=== PATIENT | female | born 1975 | race Caucasian/White ===

== ENCOUNTER 2016-11-29 14:52 | Emergency (ER) | payer MEDICAID ==
[~2016-11-29] VITALS: Ht 167.6 cm; Wt 81.9 kg
[2016-11-29 14:55] VITALS: Ht 167.6 cm; Wt 81.9 kg
--- OUTSIDE RECORDS SUMMARY | 2016-11-29 14:56 | XMS REPORT | Summary of Care ---
Author Author Bijan Yee D.O. Organization Unknown Address [address], [place] [id number] Phone Unavailable Care Team Providers Care Remote Broadcast Technician Name Role Phone Bijan Yee D.O. Unavailable Unavailable Halina Monterroso Unavailable Unavailable Unavailable Unavailable Functional Status Name Dates Details Functional status health issues are not documented Status: Name Dates Details Cognitive status health issues are not documented Status: Problems Name Dates Details Acute maxillary sinusitis, recurrence not specified (461.0, J01.00) Status: Active Essential hypertension (401.9, I10) Status: Active Medications Name Dates Details Amoxicillin-Pot Clavulanate 875-125 MG Oral Tablet TAKE 1 TABLET TWICE DAILY AFTER MEALS UNTIL FINISHED x 7 days. Quantity: 14 Joselito Pike.Luis.Bijan * Start 24-Oct-2016 Active PredniSONE 10 MG Oral Tablet TAKE 6 TABLETS TODAY, THEN DECREASE BY 1 TABLET EACH DAY UNTIL GONE. * Quantity: 21 Refills: 0 Bijan Yee D.O. * Start 24-Oct-2016 Active Lisinopril-Hydrochlorothiazide 20-12.5 MG Oral Tablet TAKE 2 TABLET Daily * Quantity: 60 Refills: 0 Bijan Yee D.O. * Start 24-Oct-2016 Active Allergies and Adverse Reactions Name Dates Details Allergy history not documented Status: Procedures Procedure Dates Details Procedures not documented Immunization Name Dates Details Immunizations not documented Social History Name Dates Details Unknown if ever smoked Vital Signs Date Test Result Details No Known Vitals to report Results Date Description Value Details Results not documented Plan of Care Name Dates Details Planned Observations Planned Goals not documented Interventions Provided Medication Changes* Amoxicillin-Pot Clavulanate 875-125 MG Oral Tablet - Start * Lisinopril-Hydrochlorothiazide 20-12.5 MG Oral Tablet - Start * PredniSONE 10 MG Oral Tablet - Start Instructions Name Dates Details Instructions not documented Encounters Appointment; Bijan Yee D.O. Encounter Diagnosis: Problem not documented On 24-Oct-2016 19:35
--- OUTSIDE RECORDS SUMMARY | 2016-11-29 14:56 | XMS REPORT | Referral Summary ---
Author Organization Unknown Address Unknown Phone Unavailable Care Team Providers Care Transplanter Name Role Phone Glendy Monterroso Primary Care Physician [phone] Encounter VC Date(s): 09/15/14 - 09/15/14 [facility], [facility], Family Medicine [address] [id number] Discharge Diagnosis: Edema Discharge Diagnosis: Obesity Discharge Diagnosis: Depression Discharge Diagnosis: Fibromyalgia Discharge Diagnosis: Hypopotassemia Discharge Diagnosis: Acute sinusitis Discharge Diagnosis: Anxiety Discharge Disposition: Home or Self Care Attending Physician: Bar Perez Admitting Physician: Bar Perez Vital Signs Most recent to 1 oldest [Reference Range]: Peripheral Pulse 95 bpm Rate [60-100 bpm] (09/15/14 9:59 AM) Blood Pressure 140/92 mmHg [90-140/60-90 mmHg] (09/15/14 9:59 AM) Most recent to 1 oldest [Reference Range]: SpO2 98 % (09/15/14 9:59 AM) Problem List Condition Effective Dates Status Health Status Informant Acute Active sinusitis(Confirmed) Allergies(Confirmed) Active Anemia(Confirmed) Active Anxiety(Confirmed) Active Depression(Confirmed Active ) Edema(Confirmed) Active Fibromyalgia(Confirm Active ed) Hypertension(Confirm Active ed) Obesity(Confirmed) Active patient Peptic ulcer Active disease(Confirmed) Allergies, Adverse Reactions, Alerts Substance Reaction Severity Status droperidol Active sulfamethoxazole Adverse Reaction Active sick sulfonamides sick Active Medications Augmentin 875 mg-125 mg oral tablet 1 tabs, Oral, q12hr, X 10 days, # 20 tabs, 0 Refill(s), Pharmacy: [facility] Start Date: 09/15/14 Stop Date: 09/25/14 Status: Ordered Maxzide 75 mg-50 mg oral tablet 1 tabs, Oral, Daily, # 90 tabs, 3 Refill(s), Pharmacy: [facility] Start Date: 09/15/14 Stop Date: 09/10/15 Status: Ordered [place] 7.5 mg-325 mg oral tablet 1 tabs, Oral, QID, X 30 days, # 120 tabs, 0 Refill(s) Start Date: 09/15/14 Stop Date: 10/15/14 Status: Ordered omeprazole 20 mg oral delayed release tablet See Instructions, take 1 Tablet by Oral route 2 times every day, 0 Refill(s) Special Instructions: take 1 Tablet by Oral route 2 times every day Start Date: 05/05/14 Status: Ordered phentermine 37.5 mg oral tablet 1 tabs, Oral, Daily, X 30 days, # 30 tabs, 0 Refill(s) Start Date: 09/15/14 Stop Date: 10/15/14 Status: Ordered potassium chloride 20 mEq oral tablet, extended release 1 tabs, Oral, BID, START, # 180 tabs, 0 Refill(s), Pharmacy: [facility] [address] [id number], 1 tabs Oral BID,Instr:START Special Instructions: START Start Date: 06/19/14 Status: Ordered Xanax 0.25 mg oral tablet 1 tabs, Oral, BID, X 30 days, # 60 tabs, 2 Refill(s) Start Date: 09/15/14 Stop Date: 12/14/14 Status: Ordered Results Chemistry Most recent to 1 oldest [Reference Range]: Sodium Lvl [135-144 139 mEq/L mEq/L] (09/15/14 10:50 AM) Potassium Lvl 4.2 mEq/L [3.5-5.2 mEq/L] (09/15/14 10:50 AM) Chloride [99-111 102 mEq/L mEq/L] (09/15/14 10:50 AM) CO2 [22-31 mEq/L] 27 mEq/L (09/15/14 10:50 AM) AGAP [3-20] 10 (09/15/14 10:50 AM) BUN [7-19 mg/dL] 9 mg/dL (09/15/14 10:50 AM) Glucose Lvl [70-99 95 mg/dL mg/dL] (09/15/14 10:50 AM) Creatinine Lvl 0.82 mg/dL [0.57-1.11 mg/dL] (09/15/14 10:50 AM) eGFR [>60 mL/min] >60 mL/min 1 (09/15/14 10:50 AM) Calcium Lvl 10.1 mg/dL [8.9-10.5 mg/dL] (09/15/14 10:50 AM) Albumin Lvl [3.5-5.0 4.1 gm/dL gm/dL] (09/15/14 10:50 AM) Total Protein 6.8 gm/dL [6.4-8.3 gm/dL] (09/15/14 10:50 AM) Globulin [1.8-4.0 2.7 gm/dL gm/dL] (09/15/14 10:50 AM) ALT [0-55 unit/L] 18 unit/L (09/15/14 10:50 AM) AST [5-34 unit/L] 16 unit/L (09/15/14 10:50 AM) Alk Phos [40-150 60 unit/L unit/L] (09/15/14 10:50 AM) Bili Total [0.2-1.2 0.2 mg/dL mg/dL] (09/15/14 10:50 AM) 1Result Comment: Multiply eGFR results by 1.21 for race. Immunizations Vaccine Date Refusal Reason tetanus/diphth/pertuss (Tdap) adult/adol 04/26/09 Procedures Procedure Date Related Diagnosis Body Site Collection of venous blood by venipuncture 09/15/1426-Aug-2014 00:38:50<$> Hysterectomy 2013 Social History Social History Type Response Smoking Status Former smoker; Type: Cigarettes Assessment and Plan Extracted from: Title: Office Visit Note Author: Bar Perez Date: 09/15/14 Assessment/Plan Acute sinusitis May continue symptomatic treatment. Start Augmentin 875/125 mg take one twice a day for 10 days. She has had this antibiotic in the past and it seems to work well. Anxiety Continue on xanax as needed. Edema Increase Maxzide to 75/50 mg, take 1 daily.New Prescription sent. Fibromyalgia [place] 7.5/325, take up to 4 times a day as needed for severe pain. Prescription handed to patient. Hypopotassemia Chemistry panel is pending. We will notify her with those results and let her know if she needs to continue on the potassium or not. Ordered: Comprehensive Metabolic Panel Obesity Discussed appetite suppressants and use. Advised to call if palpitations, chest pain, shortness of breath, chest pressure or elevated BP occur. Reviewed importance of daily exercise, good food choices, portion control andno snacking between meals. Refill given on 37.5mg daily. Patient will follow up in 1 month for weight and blood pressure check. Dictation was performed with voice recognition software, proofreading was not performed. Voice recognition errors possible. Orders: ALPRAZolam, 1 tabs, Oral, BID, X 30 days, # 60 tabs, 2 Refill(s) amoxicillin-clavulanate, 1 tabs, Oral, q12hr, X 10 days, # 20 tabs, 0 Refill(s ), Pharmacy: [facility] HYDROcodone-acetaminophen, 1 tabs, Oral, QID, X 30 days, # 120 tabs, 0 Refill( s) phentermine, 1 tabs, Oral, Daily, X 30 days, # 30 tabs, 0 Refill(s) triamterene-hydrochlorothiazide, 1 tabs, Oral, Daily, # 90 tabs, 3 Refill(s), Pharmacy: [facility]
--- OUTSIDE RECORDS SUMMARY | 2016-11-29 14:56 | XMS REPORT ---
Author Author Orestes Calero Organization [employer] Address Unknown Phone Unavailable Care Team Providers Care Motor Winder Name Role Phone Orestes Calero CP Unavailable Allergies No Known Allergies Problems No Known Problems Medications No Known Medications Results No Known Results Summary Purpose e[employer] Submission
--- OUTSIDE RECORDS SUMMARY | 2016-11-29 14:56 | XMS REPORT | Continuity of Care Document ---
Author Author Jens Monterroso MD [facility] Address [address] [place] [address] Phone Care Team Providers Care Disc Pad Plate Filler Name Role Phone Jens Monterroso PP Unavailable Payers Payer name Insurance type Covered green party ID Authorization(s) Unknown Problems Condition Effective Dates (start - stop) Clinical Status Anxiety - *Chronic Myalgia and myositis, unspecified - *Chronic Obesity - *Chronic Elevated blood pressure reading without diagnosis of hypertension - *Acute Acute maxillary sinusitis - *Acute Benign essential hypertension - *Chronic Depressive disorder, not elsewhere classified - *Chronic Esophageal reflux - *Chronic Abnormal weight gain - *Chronic Myalgia and myositis, unspecified - *Chronic Obesity - *Chronic Acne - *Symptomatic Anxiety - *Symptomatic Depression - *Symptomatic Fibromyalgia - *Chronic Elevated blood pressure reading without diagnosis of hypertension - *Acute Depression - *Worse Abnormal weight gain - Recurrent Sinusitis, Acute - *Acute Obesity - *Chronic Benign essential hypertension - *Chronic Depressive disorder, not elsewhere classified - *Chronic Benign essential hypertension - *Chronic Obesity (BMI 30-39.9) - *Acute Obesity - *Chronic Nasal congestion - *Chronic Myalgia and myositis, unspecified - *Chronic Allergic rhinitis, cause unspecified - *Chronic Abnormal weight gain - *Chronic Acute maxillary sinusitis - *Acute Myalgia and myositis, unspecified - *Chronic Diarrhea - *Acute Metrorrhagia - *Chronic Benign essential hypertension - *Chronic Myalgia and myositis, unspecified - *Chronic Other malaise and fatigue - *Chronic Myalgia and myositis, unspecified - *Chronic Myalgia and myositis, unspecified - *Chronic Abnormal weight gain - *Chronic Myalgia and myositis, unspecified - *Chronic Depressive disorder, not elsewhere classified - *Chronic Sinusitis, Acute - Recurrent Abnormal weight gain - *Symptomatic Myalgia and myositis, unspecified - *Chronic Obesity - *Chronic Abnormal weight gain - *Acute Dehydration - *Acute Nausea with vomiting - *Acute Abdominal pain, epigastric - *Acute Obesity - *Chronic Obesity - *Chronic Anxiety - *Chronic Depression - *Chronic Myalgia and myositis, unspecified - *Chronic Myalgia and myositis, unspecified - *Chronic Headache - *Acute Headache - *Acute Myalgia and myositis, unspecified - *Chronic Depressive disorder, not elsewhere classified - *Chronic Abdominal pain, epigastric - *Acute Depressive disorder, not elsewhere classified - *Chronic Benign essential hypertension - *Chronic Urinary tract infection, site not specified - Recurrent Screening for diabetes mellitus - *Chronic Benign essential hypertension - *Chronic Myalgia and myositis, unspecified - *Chronic Benign essential hypertension - *Chronic Myalgia and myositis, unspecified - *Chronic Esophageal reflux - *Chronic Depressive disorder, not elsewhere classified - *Chronic Abnormal weight gain - *Chronic Benign essential hypertension - *Chronic Myalgia and myositis, unspecified - *Chronic Benign essential hypertension - *Chronic Depressive disorder, not elsewhere classified - *Chronic Stress incontinence, female - *Chronic Ganglion of tendon sheath - *Chronic Headache - *Acute Elevated blood pressure (not hypertension) - Episodic Acute sinusitis - *Acute Obesity - *Chronic Depression - *Poor control Obesity - *Chronic Obesity - *Poor control Fibromyalgia - *Chronic GERD - *Chronic Hypertension, Benign - *Chronic Obesity - *Chronic Abnormal weight gain - *Chronic Allergic rhinitis, cause unspecified - *Symptomatic Benign essential hypertension - *Chronic Myalgia and myositis, unspecified - *Chronic Acute maxillary sinusitis - *Acute Upper Respiratory Infection, Acute - *Acute Obesity - *Chronic Family History Family Member Diagnosis Age At Onset Status Maternal grandfather (Alive) CAD Yes Maternal grandmother (Unknown) Hypothyroidism Yes Mother (Unknown) Cancer -cervical Yes Maternal grandmother (Unknown) Hypertension Yes Mother (Unknown) Hypertension Yes Social History Social History Element Description Quantity Unknown Allergies, Adverse Reactions, Alerts Substance Reaction Severity Status SULFA (SULFONAMIDE ANTIBIOTICS) sick Unknown SULFABENZAMIDE sick Unknown DROPERIDOL Unknown Medications Medication Instructions Dosage Effective Dates (start - stop) Status Xanax 0.25 mg tablet take 1 tablet (0.25MG) by oral route 2 times every day (MUST LAST 30 DAYS) - Active clindamycin 1 % topical solution apply by topical route 2 times every day a thin layer to the affected area(s) 0 - Active [place] 7.5 mg-325 mg tablet take 1 tablet by mouth 4 times a day as needed - Active Xanax 0.25 mg tablet take 1 tablet (0.25MG) by oral route 2 times every day (MUST LAST 30 DAYS) - No Longer Active omeprazole 20 mg tablet,delayed release take 1 Tablet by Oral route 2 times every day 0 - Active take 1 tablet by oral route 2 times every day 0 - Active Effexor XR 75 mg capsule,extended release take 1 capsule (75MG) by oral route every day with food along with 150mg capsule - Active Effexor XR 150 mg capsule,extended release take 1 capsule (150MG) by oral route every day along with 75mg capsule - Active minocycline 50 mg tablet Take 1 tablet by mouth twice daily. - Active hydrochlorothiazide 25 mg tablet take 2 Tablet (50MG) by oral route every day 50 MG - Active Lexapro 10 mg tablet take 1 Tablet (10MG) by oral route every day 10 MG - Active Immunizations Vaccine Date Status Comments Tdap completed Results Test Name Date and Time Measure Units Reference Range Abnormal Flag Comments Unknown Vital Signs Date / Time: Height Weight Pulse Rate Blood Pressure Temperature /09:34:00 65.50 in 198.00 lbs 94 /min 150/100 mm[Hg] 97.5 F Procedures Procedure Date Unknown Encounters Encounter Location Date Patient Visit [address] Patient Visit [facility] Patient Visit [address] Patient Visit [address] Patient [address] Patient Visit [address] Patient Visit [address] Patient Visit [facility] Patient Visit [address] Patient [address] Patient [facility] Patient [facility] Patient [facility] Patient [facility] Patient [facility] Patient [facility] Patient [facility] Patient [facility] Patient Visit [facility] Patient [facility] Patient [facility] Patient Visit [facility] Patient Visit [facility] Patient Visit [facility] Patient Visit [facility] Patient Visit [facility] Patient Visit [facility] Patient Visit [facility] Patient Visit [facility] Advance Directives Directive Effective Date Unknown
--- OUTSIDE RECORDS SUMMARY | 2016-11-29 14:56 | XMS REPORT | Summary of Care ---
Author Author Bijan Yee D.O. Organization Unknown Address [address] [place], [place] [address] Phone Unavailable Care Team Providers Care Management Coordinator Name Role Phone Bijan Yee D.O. Unavailable Unavailable Halina Monterroso Unavailable Unavailable Unavailable Unavailable Functional Status Name Dates Details Functional status health issues are not documented Status: Name Dates Details Cognitive status health issues are not documented Status: Problems Name Dates Details Acute maxillary sinusitis, recurrence not specified (461.0, J01.00) Status: Active Medications Name Dates Details Amoxicillin-Pot Clavulanate 875-125 MG Oral Tablet TAKE 1 TABLET TWICE DAILY AFTER MEALS UNTIL FINISHED x 7 days. Quantity: 14 Bijan Yee D.O. * Start 24-Oct-2016 Active PredniSONE 10 MG [...]
--- OUTSIDE RECORDS SUMMARY | 2016-11-29 14:56 | XMS REPORT ---
Author Orestes Auguste [facility] [employer] Address Unknown Phone Unavailable Care Team Providers Care Scrap Iron Loader Name Role Phone Orestes Calero CP Unavailable Allergies No Known Allergies Problems No Known Problems Medications No Known Medications Results No Known Results Summary Purpose eClinicalWorks Submission
--- OUTSIDE RECORDS SUMMARY | 2016-11-29 14:57 | XMS REPORT ---
Author Author Orestes Calero Organization [employer] Address Unknown Phone Unavailable Care Team Providers Care Tissue Inserter Name Role Phone Orestes Calero CP Unavailable Allergies No Known Allergies Problems No Known Problems Medications No Known Medications Results No Known Results Summary Purpose eClinicalWorks Submission
--- OUTSIDE RECORDS SUMMARY | 2016-11-29 14:57 | XMS REPORT | Referral Summary ---
Author Organization Unknown Address Unknown Phone Unavailable Care Team Providers Care Digital Media Producer Name Role Phone Glendy Monterroso Primary Care Physician [phone] Encounter VC Date(s): 10/27/14 - 10/27/14 [facility], [facility], Family Medicine [address] [address] Discharge Diagnosis: Vaginal dryness Discharge Diagnosis: Obesity Discharge Diagnosis: Chronic sinusitis Discharge Diagnosis: Anxiety Discharge Diagnosis: Depression Discharge Diagnosis: Hypokalemia Discharge Disposition: Home or Self Care Attending Physician: Bar Perez Admitting Physician: Bar Perez Vital Signs Most recent to 1 oldest [Reference Range]: Peripheral Pulse 104 bpm Rate [60-100 bpm] *HI* (10/27/14 10:24 AM) Blood Pressure 160/100 mmHg [90-140/60-90 mmHg] *HI* (10/27/14 10:24 AM) Most recent to 1 oldest [Reference Range]: SpO2 97 % (10/27/14 10:24 AM) Problem List Condition Effective Dates Status Health Status Informant Acute Active sinusitis(Confirmed) Allergies(Confirmed) Active Anemia(Confirmed) Active Anxiety(Confirmed) Active Depression(Confirmed Active ) Edema(Confirmed) Active Fibromyalgia(Confirm Active ed) Hypertension(Confirm Active ed) Obesity(Confirmed) Active patient Peptic ulcer Active disease(Confirmed) Allergies, Adverse Reactions, Alerts Substance Reaction Severity Status droperidol Active sulfamethoxazole Adverse Reaction Active sick sulfonamides sick Active Medications Maxzide 75 mg-50 mg oral tablet 1 tabs, Oral, Daily, # 90 tabs, 3 Refill(s), Pharmacy: [facility] Start Date: 09/15/14 Stop Date: 09/10/15 Status: Ordered [place] 7.5 mg-325 mg oral tablet 1 tabs, Oral, QID, X 30 days, # 120 tabs, 0 Refill(s) Start Date: 10/27/14 Stop Date: 11/26/14 Status: Ordered omeprazole 20 mg oral delayed release tablet See Instructions, take 1 Tablet by Oral route 2 times every day, 0 Refill(s) Special Instructions: take 1 Tablet by Oral route 2 times every day Start Date: 05/05/14 Status: Ordered phentermine 37.5 mg oral capsule 1 caps, Oral, Daily, # 30 caps, 0 Refill(s) Start Date: 10/27/14 Stop Date: 11/27/14 Status: Ordered potassium chloride 20 mEq oral tablet, extended release 1 tabs, Oral, BID, START, # 180 tabs, 4 Refill(s), Pharmacy: [facility] [id number], 1 tabs Oral BID,Instr:START Special Instructions: START Start Date: 10/27/14 Status: Ordered Xanax 0.25 mg oral tablet 1 tabs, Oral, BID, X 30 days, # 60 tabs, 2 Refill(s) Start Date: 09/15/14 Stop Date: 12/14/14 Status: Ordered Results Chemistry Most recent to 1 oldest [Reference Range]: Sodium Venous 138 mEq/L [136-145 mEq/L] (10/27/14 11:35 AM) Potassium Venous 3.1 mEq/L 1 [3.5-5.1 mEq/L] *LOW* (10/27/14 11:35 AM) Calcium Ionized 1.1 mmol/L Venous [1.1-1.3 (10/27/14 11:35 AM) mmol/L] Total CO2 Venous 27 mEq/L [24-29 mEq/L] (10/27/14 11:35 AM) Glucose Venous 111 mg/dL [70-100 mg/dL] *HI* (10/27/14 11:35 AM) BUN Venous [8-26] 10 (10/27/14 11:35 AM) Creatinine Venous 1.1 mg/dL [0.6-1.2 mg/dL] (10/27/14 11:35 AM) GFR [>60] 55 (10/27/14 11:35 AM) Venous CL [98-109 98 mEq/L mEq/L] (10/27/14 11:35 AM) 1Result Comment: This test was performed on a whole blood specimen. The presence or absence of hemolysis cannot be assessed. Hemolysis can falsely elevate potassium levels. Normals are for venous specimens only. Immunizations Vaccine Date Refusal Reason tetanus/diphth/pertuss (Tdap) adult/adol 04/26/09 Procedures Procedure Date Related Diagnosis Body Site Collection of venous blood by venipuncture 10/27/14 Hysterectomy 2012 Social History Social History Type Response Smoking Status Former smoker; Type: Cigarettes Assessment and Plan Extracted from: Title: Office Visit Note Author: Bar Perez Date: 10/27/14 Assessment/Plan 1.Anxiety I am not going to increase her Xanax dose. I explained to her that she is likely becoming more and anxious because she stopped all of her depression medication and due to the phentermine. She will remain on 0.25 mg up to twice a day as needed. Patient still has one refill at the pharmacy. 2.Depression She does not want to take antidepressants at this time and feels like this is controlled. 3.Hypokalemia Metabolic profile is pending. Currently she is not taking her potassium supplement but she may need to restart this since she's been having the muscle aches. 4.Obesity Discussed appetite suppressants and use. Advised to [...] not performed. Voice recognition errors possible. Orders: HYDROcodone-acetaminophen, 1 tabs, Oral, QID, X 30 days, # 120 tabs, 0 Refill(s) phentermine, 1 caps, Oral, Daily, # 30 caps, 0 Refill(s) Addendum Assessment and plan cont. by 5. Vaginal dryness; pt is post hysterectomy and having problems with vaginal dryness and Chris, irritation. No h/o of cervical or uterine cancer according to pathology reports from [facility] hysterectomy. Still has one ovary. Given sample of premarin to try 3 times a week for 1 on , then 1-2 times weekly after that.New medication started today; discussed proper October 2014 dosing and possible side effects. If patient experiences any problems with the new 13:02:06 medication, they are advised to let us know. 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 Chronic sinus problems: encouraged to take coricidin HBP and try Dysmista, given a sample.
--- OUTSIDE RECORDS SUMMARY | 2016-11-29 14:57 | XMS REPORT | Continuity of Care Document ---
Author Author Lauren Hernandez MA, [facility] Ambulatory Address [address] [place] [address] Phone Unavailable Care Team Providers Care Parakeet Raiser Name Role Phone Jens Monterroso PP Unavailable Payers Payer name Insurance type Covered green party ID Authorization(s) Unknown Problems Condition Effective Dates (start - stop) Clinical Status Obesity - *Chronic Acne - *Symptomatic Anxiety - *Symptomatic Depression - *Symptomatic Fibromyalgia - *Chronic Acute maxillary sinusitis - *Acute Benign essential hypertension - *Chronic Depressive disorder, not elsewhere classified - *Chronic Esophageal reflux - *Chronic Abnormal weight gain - *Chronic Myalgia and myositis, unspecified - *Chronic Anxiety - *Chronic Myalgia and myositis, unspecified - *Chronic Obesity - *Chronic Elevated blood pressure reading without diagnosis of hypertension - *Acute Obesity - *Chronic Benign essential [...] Dosage Effective Dates (start - stop) Status Effexor XR 75 mg capsule,extended release take 1 capsule (75MG) by oral route every day with food along with 150mg capsule - Active Effexor XR 150 mg capsule,extended release take 1 capsule (150MG) by oral route every day along with 75mg capsule - Active phentermine 30 mg capsule take 1 capsule (30MG) by oral route every day before breakfast 30 MG - Active minocycline 50 mg tablet Take 1 tablet by mouth twice daily. - Active clindamycin 1 % topical solution apply by topical route 2 times every day a thin layer to the affected area(s) 0 - No Longer Active Ezel 7.5 mg-325 mg tablet take 1 tablet by mouth 4 times a day as needed - No Longer Active omeprazole 20 mg tablet,delayed release take 1 Tablet by Oral route 2 times every day 0 - Active take 1 tablet by oral route 2 times every day 0 - Active hydrochlorothiazide 25 mg tablet take 2 Tablet (50MG) by oral route every day 50 MG - Active clindamycin 1 % topical solution apply by topical route 2 times every day a thin layer to the affected area(s) 0 - Active Ezel 7.5 mg-325 mg tablet take 1 tablet by mouth 4 times a day as needed - Active Xanax 0.25 mg tablet take 1 tablet (0.25MG) by oral route 2 times every day (MUST LAST 30 DAYS) - Active Immunizations Vaccine Date Status Comments Tdap completed Results Test Name Date and Time Measure Units Reference Range Abnormal Flag Comments Unknown Vital Signs Date / Time: Height Weight Pulse Rate Blood Pressure Temperature / 130/88 mm[Hg] /14:59:00 65.50 in 198.00 lbs 79 /min 130/100 mm[Hg] 98.5 F Procedures Procedure Date Unknown Encounters Encounter Location Date Patient Visit [address] Patient Visit [facility] Patient Visit [address] Patient Visit [address] Patient Visit [address] Patient Visit [address] Patient Visit [facility] Patient Visit [address] Patient [address] Patient [facility] Patient [facility] Patient Visit [facility] Patient Visit [facility] Patient Visit [facility] Patient [facility] Advance Directives Directive Effective Date Unknown
--- OUTSIDE RECORDS SUMMARY | 2016-11-29 14:57 | XMS REPORT | Continuity of Care Document ---
Author Author [facility] Organization [facility] Address Unknown Phone Unavailable Allergies Medications Problems Date Dx Coded Attending Type Code Diagnosis Diagnosed By 05/21/2013 Mariann MENDIOLA, Paulino Zaldivar F 278.02 OVERWEIGHT 05/21/2013 Mariann MENDIOLA, Paulino W F 401.9 HYPERTENSION NOS 05/21/2013 Mariann MENDIOLA, Paulino W F 533.90 PEPTIC ULCER NOS 05/21/2013 Mariann MENDIOLA, Paulino W F 618.6 VAGINAL ENTEROCELE 05/21/2013 Mariann MENDIOLA, Paulino W F 626.8 MENSTRUAL DISORDER NEC 05/21/2013 Mariann MENDIOLA, Paulino W F 729.1 MYALGIA AND MYOSITIS NOS 05/21/2013 Mariann MENDIOLA, Paulino W F V06.6 PROPHYLACTIC VACC AGNST STREPTOCOCCUS PNEUM INFL 11/24/2016 LEENA HUFF [id number] Nicotine dependence, cigarettes, uncomplicated 11/24/2016 LEENA HUFF I10 Essential (primary) hypertension 11/24/2016 LEENA HUFF R072 Precordial pain 11/24/2016 LEENA HUFF R0789 Other chest pain 11/24/2016 LEENA HUFF [id number] Other intermodal customer service (current) drug therapy Procedures Code Description Performed By Performed On 65.39 OT UNILAT OOPHORECTOMY Paulino Waite MD W 05/21/2013 66.51 REMOVE BOTH FALLOP TUBES Paulino Waite MD W 05/21/2013 68.49 OTHER AND UNSPECIFIED TOTAL ABDOMINAL HYSTERECTOMY Mariann MENDIOLA, Paulino W 05/21/2013 70.52 RECTOCELE REPAIR Mariann MENDIOLA, Paulino W 05/21/2013 Results Test Result Range TROPONIN I - 11/11/12 22:40 TROPONIN I < 0.04 ng/mL < 0.15 POTASSIUM - 05/21/13 09:15 POTASSIUM 3.4 mmol/L 3.5-5.3 TEST, SERUM - 05/21/13 09:15 TEST, SERUM NEGATIVE NEGATIVE URINE CULTURE - 05/21/13 11:12 Uncategorized HGB HCT - 05/21/13 17:58 MEAN CELL VOLUME 84.4 fl 80.0-100.0 HEMOGLOBIN 13.3 gm/dL 12.0-16.0 HEMATOCRIT 39.5 % 37.0-47.0 HGB HCT - 05/22/13 06:11 MEAN CELL VOLUME 86.1 fl 80.0-100.0 HEMOGLOBIN 12.3 gm/dL 12.0-16.0 HEMATOCRIT 37.3 % 37.0-47.0 CBC WITH PLATELET AND DIFFERENTIAL - 07/19/16 21:25 SEGS 72.1 % NRG *BASOPHILS 0.6 % NRG *EOSINOPHILS 3.5 % NRG AUTOMATED DIFF PERFORMED NRG *LYMPHOCYTES 19.1 % NRG *MONOCYTES 4.7 % NRG *ABSOLUTE BASOPHILS 0.10 10*3/uL 0.00- 0.20 *ABSOLUTE EOSINOPHILS 0.30 10*3/uL 0.00- 0.50 *ABSOLUTE LYMPHOCYTES 1.80 10*3/uL 1.00- 3.00 *ABSOLUTE MONOCYTES 0.40 10*3/uL 0.30- 1.00 *ABSOLUTE NEUTROPHILS 6.90 10*3/uL 1.80- 7.80 MPV 7.2 fL 7.4-10.4 PLATELETS 330 10*3/uL 159-386 WBC 9.6 10*3/uL 3.6-11.2 RBC 4.76 3.63-4.92 HEMOGLOBIN 13.4 11.0-14.3 HEMATOCRIT 40.3 % 31.2-41.9 MCV 84.6 fL 79.0-98.0 MCH 28.2 pg 27.0-33.0 MCHC 33.3 32.0-36.0 RDW 13.4 % 12.3-17.0 RDWSD 40.3 37.1-47.8 COMPREHENSIVE METABOLIC PANEL - 07/19/16 21:25 BILIFUBIN TOTAL 0.20 0.20-1.00 TOTAL PROTEIN 6.6 6.4-8.2 ALBUMIN 3.4 3.4-5.0 *GLOBULIN 3.2 2.3-3.5 *A/G RATIO 1.1 1.5-2.2 ALK PHOS 62 U/L 46-116 ALT (SGPT) 21 U/L 16-63 AST (SGOT) 10 U/L 15-37 GFR ESTIMATION - 07/19/16 21:25 *GFR EST NON AFR SALVADOREAN 75 mL/min NRG *GRFA EST AFR AMER 87 mL/min NRG PROTHROMBIN TIME - 07/19/16 21:25 *INR 1.0 0.9-1.1 *PROTHROMBIN TIME 10.0 s 9.4-11.5 LIPASE - 07/19/16 21:25 LIPASE 101 U/L 73-393 TROPONIN-I - 07/19/16 21:25 TROPONIN-I <0.017 ng/mL 0.000-0.056 BNP - 07/19/16 21:25 B-TYPE NATRIURETIC PROTEIN 116 pg/mL 1- 100 URINALYSIS (CULTURE PRN) - 07/19/16 23:10 *URINE APPEARANCE CLEAR CLEAR *URINE BILIRUBIN NEGATIVE NEGATIVE *URINE BLOOD NEGATIVE NEGATIVE *URINE GLUCOSE NEGATIVE NEGATIVE *URINE KETONES NEGATIVE NEGATIVE *URINE LEUKOCYTES NEGATIVE NEGATIVE *URINE NITRITES NEGATIVE NEGATIVE URINE PH 7.0 5.0-8.0 *URINE PROTEIN NEGATIVE NEGATIVE URINE SPECIFIC GRAVITY 1.015 <=1.005->= 1.030 *URINE UROBILINOGEN 0.2 0.2-1.0 *URINE COLOR YELLOW STRAW/YELL/DK YELL URINALYSIS (CULTURE PRN) - 11/19/16 19:44 *URINE APPEARANCE CLEAR CLEAR *URINE BILIRUBIN NEGATIVE NEGATIVE *URINE BLOOD NEGATIVE NEGATIVE *URINE GLUCOSE NEGATIVE NEGATIVE *URINE KETONES NEGATIVE NEGATIVE *URINE LEUKOCYTES NEGATIVE NEGATIVE *URINE NITRITES NEGATIVE NEGATIVE URINE PH 7.0 5.0-8.0 *URINE PROTEIN NEGATIVE NEGATIVE URINE SPECIFIC GRAVITY 1.010 <=1.005->= 1.030 *URINE UROBILINOGEN 0.2 0.2-1.0 *URINE COLOR STRAW STRAW/YELL/DK YELL CBC WITH PLATELET AND DIFFERENTIAL - 11/19/16 19:52 SEGS 86.0 % NRG *BASOPHILS 0.4 % NRG *EOSINOPHILS 0.9 % NRG AUTOMATED DIFF PERFORMED NRG *LYMPHOCYTES 10.9 % NRG *MONOCYTES 1.8 % NRG *ABSOLUTE BASOPHILS 0.10 10*3/uL 0.00- 0.20 *ABSOLUTE EOSINOPHILS 0.10 10*3/uL 0.00- 0.50 *ABSOLUTE LYMPHOCYTES 1.40 10*3/uL 1.00- 3.00 *ABSOLUTE MONOCYTES 0.20 10*3/uL 0.30- 1.00 *ABSOLUTE NEUTROPHILS 10.80 10*3/uL 1.80- 7.80 MPV 7.3 fL 7.4-10.4 PLATELETS 322 10*3/uL 159-386 WBC 12.6 10*3/uL 3.6-11.2 RBC 5.03 3.63-4.92 HEMOGLOBIN 14.1 11.0-14.3 HEMATOCRIT 42.1 % 31.2-41.9 MCV 83.6 fL 79.0-98.0 MCH 27.9 pg 27.0-33.0 MCHC 33.4 32.0-36.0 RDW 13.4 % 12.3-17.0 RDWSD 39.8 37.1-47.8 COMPREHENSIVE METABOLIC PANEL - 11/19/16 19:52 BILIFUBIN TOTAL 0.20 0.20-1.00 TOTAL PROTEIN 7.1 6.4-8.2 ALBUMIN 3.6 3.4-5.0 *GLOBULIN 3.5 2.3-3.5 *A/G RATIO 1.0 1.5-2.2 ALK PHOS 84 U/L 46-116 ALT (SGPT) 28 U/L 16-63 AST (SGOT) 21 U/L 15-37 D-DIMER - 11/19/16 19:52 D-DIMER 0.43 mg{FEU}/L 0.00-0.50 GFR ESTIMATION - 11/19/16 19:52 *GFR EST NON AFR SALVADOREAN >90 mL/min NRG *GRFA EST AFR AMER >90 mL/min NRG TROPONIN-I - 11/19/16 19:52 TROPONIN-I <0.017 ng/mL 0.000-0.056 BNP - 11/19/16 19:52 B-TYPE NATRIURETIC PROTEIN 167 pg/mL 1- 100 TROPONIN-I - 11/19/16 23:02 TROPONIN-I <0.017 ng/mL 0.000-0.056 LIPID PANEL W/ LDL DIRECT REFLEX - 11/19/16 23:02 TRIGLYCERIDES 72 0-149 CHOLESTEROL 200 50-199 HDL CHOLESTEROL 54 40-60 *LDL (CALCULATED) CHOL 132 0-99 CBC WITH PLATELET AND DIFFERENTIAL - 11/20/16 03:03 SEGS 92.9 % NRG *BASOPHILS 0.4 % NRG *EOSINOPHILS 0.0 % NRG AUTOMATED DIFF PERFORMED NRG *LYMPHOCYTES 6.1 % NRG *MONOCYTES 0.6 % NRG *ABSOLUTE BASOPHILS 0.00 10*3/uL 0.00- 0.20 *ABSOLUTE EOSINOPHILS 0.00 10*3/uL 0.00- 0.50 *ABSOLUTE LYMPHOCYTES 0.80 10*3/uL 1.00- 3.00 *ABSOLUTE MONOCYTES 0.10 10*3/uL 0.30- 1.00 *ABSOLUTE NEUTROPHILS 11.70 10*3/uL 1.80- 7.80 MPV 7.7 fL 7.4-10.4 PLATELETS 295 10*3/uL 159-386 WBC 12.5 10*3/uL 3.6-11.2 RBC 4.86 3.63-4.92 HEMOGLOBIN 13.7 11.0-14.3 HEMATOCRIT 40.7 % 31.2-41.9 MCV 83.7 fL 79.0-98.0 MCH 28.2 pg 27.0-33.0 MCHC 33.7 32.0-36.0 RDW 13.1 % 12.3-17.0 RDWSD 38.9 37.1-47.8 BASIC METABOLIC PANEL - 11/20/16 03:03 SODIUM 138 mmol/L 136-145 POTASSIUM 4.0 mmol/L 3.5-5.1 CHLORIDE 101 mmol/L 98-107 TCO2 26.9 mmol/L 21.0-32.0 *ANION GAP 10.1 mmol/L 8.0-16.0 BUN 11 7-18 CREATININE 1.04 0.55-1.02 *BUN/CREATININE RATIO 10.6 9.1-17.0 GLUCOSE 201 65-99 CALCIUM 8.9 8.5-10.1 GFR ESTIMATION - 11/20/16 03:03 *GFR EST NON AFR SALVADOREAN 66 mL/min NRG *GRFA EST AFR AMER 77 mL/min NRG TROPONIN-I - 11/20/16 03:03 TROPONIN-I <0.017 ng/mL 0.000-0.056 TROPONIN-I - 11/20/16 06:54 TROPONIN-I <0.017 ng/mL 0.000-0.056 Encounters ACCT No. Visit Date/Time Discharge Status Pt. Type Provider Facility Loc./Unit Complaint [id number] 05/21/2013 08:36:00 2012 14:16:00 DIS Inpatient Mariann MENDIOLA, [facility] ([place] [place]) [id number] 05/15/2013 09:21:00 2012 09:21:00 DIS Outpatient Mariann MENDIOLA, [facility] [place]) WIVANA [id number] 11/11/2012 22:13:00 2012 23:20:00 DIS Emergency Jayesh MENDIOLA, [facility] [email or web address]
--- OUTSIDE RECORDS SUMMARY | 2016-11-29 14:57 | XMS REPORT ---
Author Author GENERATED, SYSTEM Organization Unknown Address Unknown Phone Unavailable Care Team Providers Care Banana Grader Name Role Phone UNASSIGNED DOCTOR , DOCTOR PP [phone] Reason For Visit Chief Complaint ACUTE HEADACHE Social History Functional Status Vital Signs Results Chemistry from 07/19/2016 9:25 PMSODIUM 140 MMOL/L (136-145 MMOL/L) POTASSIUM 3.8 MMOL/L (3.5-5.1 MMOL/L) CHLORIDE 105 MMOL/L (98-107 MMOL/L) TCO2 29.0 MMOL/L (21.0-32.0 MMOL/L) *ANION GAP 6.0 MMOL/L L (8.0-16.0 MMOL/L) BUN 7 MG/DL (7-18 MG/DL) CREATININE 0.94 MG/DL (0.55-1.02 MG/DL) *BUN/CREATININE RATIO 7.4 L (9.1-17.0 ) GLUCOSE 95 MG/DL (65-99 MG/DL) *GFR EST NON AFR DJIBOUTIAN 75 ML/MIN *GFR EST AFR AMER 87 ML/MIN CALCIUM 8.5 MG/DL (8.5-10.1 MG/DL) BILIRUBIN TOTAL 0.20 MG/DL (0.20-1.00 MG/DL) TOTAL PROTEIN 6.6 GM/DL (6.4-8.2 GM/DL) ALBUMIN 3.4 GM/DL (3.4-5.0 GM/DL) *GLOBULIN 3.2 GM/DL (2.3-3.5 GM/DL) *A/G RATIO 1.1 MG/DL L (1.5-2.2 MG/DL) ALK PHOS 62 U/L (46-116 U/L) ALT (SGPT) 21 U/L (16-63 U/L) AST (SGOT) 10 U/L L (15-37 U/L) LIPASE 101 U/L (73-393 U/L) TROPONIN-I <0.017 NG/ML (0.000-0.056 NG/ML) B-TYPE NATRIURETIC PROTEIN 116 PG/ML H (1-100 PG/ML) Hematology from 07/19/2016 9:25 PMWBC 9.6 X10e3/UL (3.6-11.2 X10e3/UL) RBC 4.76 X10e6/UL (3.63-4.92 X10e6/UL) HEMOGLOBIN 13.4 G/DL (11.0-14.3 G/DL) HEMATOCRIT 40.3 % (31.2-41.9 %) *MCV 84.6 FL (79.0-98.0 FL) *MCH 28.2 PG (27.0-33.0 PG) *MCHC 33.3 G/DL (32.0-36.0 G/DL) *RDW 13.4 % (12.3-17.0 %) *RDWSD 40.3 (37.1-47.8 ) PLATELET 330 X10e3/UL (159-386 X10e3/UL) *MPV 7.2 FL L (7.4-10.4 FL) AUTOMATED DIFF PERFORMED SEGS 72.1 % *LYMPHOCYTES 19.1 % *MONOCYTES 4.7 % *EOSINOPHILS 3.5 % *BASOPHILS 0.6 % *ABSOLUTE NEUTROPHILS 6.90 X10e3/UL (1.80-7.80 X10e3/UL) *ABSOLUTE LYMPHOCYTES 1.80 X10e3/UL (1.00-3.00 X10e3/UL) *ABSOLUTE MONOCYTES 0.40 X10e3/UL (0.30-1.00 X10e3/UL) *ABSOLUTE EOSINOPHILS 0.30 X10e3/UL (0.00-0.50 X10e3/UL) *ABSOLUTE BASOPHILS 0.10 X10e3/UL (0.00-0.20 X10e3/UL) Urinalysis from 07/19/2016 11:10 PM*URINE COLOR YELLOW (STRAW/YELL/DK YELL ) *URINE APPEARANCE CLEAR (CLEAR ) URINE PH 7.0 (5.0-8.0 ) URINE SPECIFIC GRAVITY 1.015 (<=1.005->=1.030 ) *URINE GLUCOSE NEGATIVE MG/DL (NEGATIVE MG/DL) *URINE BILIRUBIN NEGATIVE (NEGATIVE ) *URINE KETONES NEGATIVE MG/DL (NEGATIVE MG/DL) *URINE BLOOD NEGATIVE (NEGATIVE ) *URINE PROTEIN NEGATIVE MG/DL (NEGATIVE MG/DL) *URINE UROBILINOGEN 0.2 EU/DL (0.2-1.0 EU/DL) *URINE NITRITES NEGATIVE (NEGATIVE ) *URINE LEUKOCYTES NEGATIVE (NEGATIVE ) Coagulation from 07/19/2016 9:25 PM*PROTHROMBIN TIME 10.0 SECONDS (9.4-11.5 SECONDS) *INR 1.0 (0.9-1.1 ) DX Radiology from 07/19/2016 9:23 PMCHEST 1 VIEW History: cp Priors: None. Findings: The heart size and pulmonary vasculature within normal limits. No consolidating infiltrates are identified. No significant pleural effusion or pneumothorax is seen. Impression: No acute abnormality. Electronically signed by: Danita Dougherty MD Dictated: 07/20/2016 05:55 CT Scan from 07/19/2016 10:34 PMCT CHEST (CTA) History: cp, [place] . PT C/O CHEST PAIN, BEGAN 2 DAYS AGO. SOB, SWEATING, AND DIZZY. HAS HIGH B/P PROBLEMS Technique: Post contrast images were performed after the administration of 95 milliliters of Isovue intravenous contrast. 3 dimensional reconstructions were performed by the technologist. Priors: None. Findings: Heart Size: Normal. Aorta: Intact and normal in size. Mediastinum and Celena: There are small mediastinal lymph nodes which are not pathologically enlarged by size criteria. Pulmonary Arteries: No evidence of filling defect to suggest pulmonary emboli. Pleura: No effusion or pneumothorax. Pulmonary parenchyma: There is minimal dependent bilateral lower lobe atelectasis. Upper abdomen: Unremarkable. Impression: Unremarkable CTA of the thorax without pulmonary embolus or other acute abnormality. . Electronically signed by: Danita Dougherty MD Dictated: 07/20/2016 05:15 Problems Encounter Diagnosis No relevant problems exist. Encounters Encounter Diagnosis No relevant problems exist. Plan of Care Procedures No relevant procedures performed. Immunizations No immunizations administered or ordered. Hospital Course Hospital Discharge Instructions Allergies, Adverse Reactions, Alerts * Latex Allergy has not been assessed. * IV Contrast Allergy has not been assessed. Medication Medication reconciliation has not been performed.
--- OUTSIDE RECORDS SUMMARY | 2016-11-29 14:57 | XMS REPORT | Referral Summary ---
Author Author [facility] Organization [facility] Address Unknown Phone Unavailable Care Team Providers Care Straddle Buggy Operator Name Role Phone Glendy Monterroso Primary Care Physician [phone] Encounter Date(s): 12/29/14 - 12/29/14 [facility] [address] [address] Discharge Diagnosis: Fibromyalgia Discharge Diagnosis: Anxiety Discharge Disposition: 01-Home or Self Care Attending Physician: Bar Perez Admitting Physician: Bar Perez Vital Signs Most recent to 1 oldest [Reference Range]: Peripheral Pulse 76 bpm Rate [60-100 bpm] (12/29/14 10:28 AM) Blood Pressure 132/98 mmHg [90-140/60-90 mmHg] (12/29/14 10:28 AM) SpO2 98 % (12/29/14 10:28 AM) Problem List Condition Effective Dates Status Health Status Informant Acute Active sinusitis(Confirmed) Allergies(Confirmed) Active Anemia(Confirmed) Active Anxiety(Confirmed) Active Depression(Confirmed Active ) Edema(Confirmed) Active Fibromyalgia(Confirm Active ed) Hypertension(Confirm Active ed) Obesity(Confirmed) Active patient Peptic ulcer Active disease(Confirmed) Allergies, Adverse Reactions, Alerts Substance Reaction Severity Status droperidol Active sulfamethoxazole Adverse Reaction Active sick sulfonamides sick Active Medications albuterol CFC free 90 mcg/inh inhalation aerosol 1 puffs, Inhalation, QID, as needed for wheezing, # 18 g, 1 Refill(s), Pharmacy : [email or web address] Start Date: 11/25/14 Status: Ordered ALPRAZolam 0.5 mg oral tablet 0.5 mg 1 tabs, Oral, QID, as needed for anxiety, # 120 tabs, 0 Refill(s) Start Date: 04/29/15 Status: Ordered Maxzide 75 mg-50 mg oral tablet 1 tabs, Oral, Daily, # 90 tabs, 3 Refill(s), Pharmacy: [email or web address] Start Date: 03/23/15 Status: Ordered omeprazole 20 mg oral delayed release tablet See Instructions, take 1 Tablet by Oral route 2 times every day, 0 Refill(s) Start Date: 05/05/14 Status: Ordered potassium chloride 20 mEq oral tablet, extended release 1 tabs, Oral, BID, START, # 180 tabs, 4 Refill(s), Pharmacy: [facility] [id number], 1 tabs Oral BID,Instr:START Start Date: 10/27/14 Status: Ordered Results No data available for this section Immunizations Vaccine Date Refusal Reason tetanus/diphth/pertuss (Tdap) adult/adol 04/26/09 Procedures Procedure Date Related Diagnosis Body Site Hysterectomy 2012 Social History Social History Type Response Smoking Status Former smoker; Type: Cigarettes Assessment and Plan Extracted from: Title: Office Visit Note Author: Bar Perez Date: 12/29/14 Assessment/Plan Anxiety Still has a refill at the pharmacy on her xanax. May continue taking 2 -3 times daily. Fibromyalgia [place] up to 4 times daily. Refills for 3 months handed to patient. Continue on daily exercise regimen. Patient is encouraged to call with any questions, concerns, increase or change in symptoms otherwise follow-up in3 months or sooner if needed. Orders: ALPRAZolam, 1 tabs, Oral, TID, as needed for anxiety, 0 Refill(s) HYDROcodone-acetaminophen, 1 tabs, Oral, QID, Do not fill until 02/28/15, X 30 days, # 120 tabs, 0 Refill(s)
--- OUTSIDE RECORDS SUMMARY | 2016-11-29 14:57 | XMS REPORT | Referral Summary ---
Author Author [facility] Organization [facility] Address Unknown Phone Unavailable Care Team Providers Care Neuro Urologist Name Role Phone Glendy Monterroso Primary Care Physician [phone] Encounter [facility] [id number] Date(s): 03/23/15 - 03/23/15 [facility] [address] [address] Discharge Diagnosis: Recurrent HSV (herpes simplex virus) Discharge Diagnosis: Fibromyalgia Discharge Diagnosis: Hypertension Discharge Diagnosis: Edema Discharge Diagnosis: Left sided abdominal pain Discharge Disposition: -Home or Self Care Attending Physician: Bar Perez Admitting Physician: Bar Perez Referring Physician: Jens Monterroso MD Vital Signs Most recent to 1 oldest [Reference Range]: Peripheral Pulse 80 bpm Rate [60-100 bpm] (03/23/15 1:53 PM) Blood Pressure 122/86 mmHg [90-140/60-90 mmHg] (03/23/15 1:53 PM) Problem List Condition Effective Dates Status Health [...] # 18 g, 1 Refill(s), Pharmacy : [facility] Start Date: 11/25/14 Status: Ordered ALPRAZolam 0.5 mg oral tablet 0.5 mg 1 tabs, Oral, QID, as needed for anxiety, # 120 tabs, 0 Refill(s) Start Date: 04/29/15 Status: Ordered Maxzide 75 mg-50 mg oral tablet 1 tabs, Oral, Daily, # 90 tabs, 3 Refill(s), Pharmacy: [facility] Start Date: 03/23/15 Status: Ordered omeprazole 20 mg oral delayed release tablet See Instructions, take 1 Tablet by Oral route 2 times every day, 0 Refill(s) Start Date: 05/05/14 Status: Ordered potassium chloride 20 mEq oral tablet, extended release 1 tabs, Oral, BID, START, # 180 tabs, 4 Refill(s), Pharmacy: [facility] [id number], 1 tabs Oral BID,Instr:START Start Date: 10/27/14 Status: Ordered Results No data available for this section Immunizations Vaccine Date Refusal Reason tetanus/diphth/pertuss (Tdap) adult/adol 04/26/09 Procedures Procedure Date Related Diagnosis Body Site Hysterectomy 2012 Social History Social History Type Response Smoking Status Former smoker; Type: Cigarettes Assessment and Plan Extracted from: Title: Office Visit Note Author: Bar Perez Date: 03/23/15 Assessment/Plan 1.Left sided abdominal pain Reviewed x-ray. Pain probably from current herpes outbreak. She signed new substance agreement. Allowed 3 [place] daily for breakthrough pain and bedtime, she should be ok taking 2 most days. Tramadol can be used during the day and she is allowed 4 of those daily. Refills for 3 months given to pt. 2.Recurrent HSV (herpes simplex virus) Famvir 500mg TID for 7 days. Also gave her a script for the preventative dosing in case she wants to start that. 3.Fibromyalgia continue on daily exercise regimen. Congratulated her on the weight loss. Ok to take tramadol and norco as needed. 4.Hypertension 5.Edema Continue on maxzide. Refills given. Patient is encouraged to call with any questions, concerns, increase or change in symptoms otherwise follow- up in 3 months or sooner if needed.
--- OUTSIDE RECORDS SUMMARY | 2016-11-29 14:57 | XMS REPORT | Continuity of Care Document ---
Author Author Jens Monterroso MD [facility] Address [address] [place] [address] Phone Care Team Providers Care Italian Tutor Name Role Phone Jens Monterroso PP Unavailable Payers Payer name Insurance type Covered constitution party ID Authorization(s) Unknown Problems Condition Effective Dates (start - stop) Clinical Status Elevated blood pressure reading without diagnosis of hypertension - *Acute Depression - *Worse Abnormal weight gain - Recurrent Sinusitis, Acute - *Acute Acute maxillary sinusitis - *Acute Benign essential hypertension - *Chronic Depressive disorder, not elsewhere classified - *Chronic Esophageal reflux - *Chronic Abnormal weight gain - *Chronic Myalgia and myositis, unspecified - *Chronic Obesity - *Chronic Acne - *Symptomatic Anxiety - *Symptomatic Depression - *Symptomatic Fibromyalgia - *Chronic Anxiety - *Chronic Myalgia and myositis, unspecified - *Chronic Obesity - *Chronic Elevated blood pressure reading without diagnosis of hypertension - *Acute Malaise and fatigue - *Worse Obesity - *Worse Depressive disorder - *Fair Control Edema - *Chronic Obesity - *Chronic Benign essential hypertension - [...] Dosage Effective Dates (start - stop) Status Lexapro 10 mg tablet take 1 Tablet (10MG) by oral route every day 10 MG - No Longer Active omeprazole 20 mg tablet,delayed release take 1 Tablet by Oral route 2 times every day 0 - Active take 1 tablet by oral route 2 times every day 0 - Active minocycline 50 mg tablet Take 1 tablet by mouth twice daily. - Active clindamycin 1 % topical solution apply by topical route 2 times every day a thin layer to the affected area(s) 0 - Active Ledyard 7.5 mg-325 mg tablet take 1 tablet by mouth 4 times a day as needed - Active Xanax 0.25 mg tablet take 1 tablet (0.25MG) by oral route 2 times every day (MUST LAST 30 DAYS) - Active hydrochlorothiazide 25 mg tablet take 2 Tablet (50MG) by oral route every day 50 MG - Active Lexapro 20 mg tablet take 1 tablet (20MG) by oral route every day 20 MG - Active Maxzide-25mg 37.5 mg-25 mg tablet take 1 tablet by oral route every day 0 - Active phentermine 37.5 mg capsule take 1 capsule (37.5MG) by oral route every day before breakfast 37.5 MG - Active Immunizations Vaccine Date Status Comments Tdap completed Results Test Name Date and Time Measure Units Reference Range Abnormal Flag Comments Unknown Vital Signs Date / Time: Height Weight Pulse Rate Blood Pressure Temperature /09:12:00 65.50 in 204.00 lbs 104 /min 140/96 mm[Hg] 98.0 F Procedures Procedure Date Unknown Encounters Encounter Location Date Patient Visit [address] Patient Visit [facility] Patient Visit [address] Patient Visit [address] Patient Visit [address] Patient Visit [address] Patient Visit [address] Patient [address] Patient [facility] Patient Visit [facility] Patient Visit [facility] Patient Visit [facility] Advance Directives Directive Effective Date Unknown
--- OUTSIDE RECORDS SUMMARY | 2016-11-29 14:57 | XMS REPORT | Continuity of Care Document ---
Author Author Jaja Ahumada CMA [facility] Address [address] [place] [address] Phone Unavailable Care Team Providers Care Gourmet Coffee Attendant Name Role Phone Jens Monterroso PP Unavailable Payers Payer name Insurance type Covered constitution party ID Authorization(s) Unknown Problems Condition Effective Dates (start - stop) Clinical Status Obesity - *Chronic Acute maxillary sinusitis - *Acute Benign essential hypertension - *Chronic Depressive disorder, not elsewhere classified - *Chronic Esophageal reflux - *Chronic Abnormal weight gain - *Chronic Myalgia and myositis, unspecified - *Chronic Obesity - *Chronic Acne - *Symptomatic Anxiety - *Symptomatic Depression - *Symptomatic Fibromyalgia - *Chronic Obesity - *Chronic Benign essential [...] pain, epigastric - *Acute Obesity - *Chronic Anxiety - *Chronic Depression [...] Dosage Effective Dates (start - stop) Status phentermine 37.5 mg capsule take 1 capsule (37.5MG) by oral route every day before breakfast 37.5 MG - No Longer Active [place]ster 7.5 mg-325 mg tablet take 1 tablet [...] route every day 50 MG - Active Xanax 0.25 mg tablet take 1 tablet (0.25MG) by oral route 2 times every day - Active phentermine 30 mg capsule take 1 capsule (30MG) by oral route every day before breakfast 30 MG - Active [place]ster 7.5 mg-325 mg tablet take 1 tablet by mouth 4 times a day as needed - Active Effexor XR 75 mg capsule,extended release take 1 capsule (75MG) by oral route every day with food along with 150mg capsule - Active Effexor XR 150 mg capsule,extended release take 1 capsule (150MG) by oral route every day along with 75mg capsule - Active clindamycin 1 % Topical Soln apply by topical route 2 times every day a thin layer to the affected area(s) 0 - Active minocycline 50 mg tablet Take 1 tablet by mouth twice daily. - Active Immunizations Vaccine Date Status Comments Tdap completed Results Test Name Date and Time Measure Units Reference Range Abnormal Flag Comments Unknown Vital Signs Date / Time: Height Weight Pulse Rate Blood Pressure Temperature /09:09:00 65.50 in 198.80 lbs 80 /min 124/92 mm[Hg] 99.1 F Procedures Procedure Date Unknown Encounters Encounter Location Date Patient Visit [address] Patient Visit [facility] Patient Visit [address] Patient Visit [address] Patient Visit [address] Patient Visit [address] Patient Visit [address] Patient Visit [facility] Patient Visit [address] Patient [address] Patient Visit [facility] Patient Visit [facility] Patient Visit [facility] Patient Visit [facility] Patient Visit [facility] Patient Visit [facility] Patient Visit [address] Patient Visit [facility] Patient Visit [address] [facility] Patient Visit [facility] Patient Visit [facility] Patient Visit [facility] Patient Visit [facility] Patient Visit [facility] [address] [place] [address] Patient Visit [facility] Patient Visit [facility] Patient Visit [facility] Advance Directives Directive Effective Date Unknown
--- OUTSIDE RECORDS SUMMARY | 2016-11-29 14:57 | XMS REPORT ---
Author Author Lashon Nickerson Organization [employer] Address Unknown Phone Unavailable Care Team Providers Care Coating Machine Operator Name Role Phone Lashon Nickerson CP Unavailable Allergies, Adverse Reactions, Alerts Substance Reaction Event Type Inapsine Info Not Available Drug Allergy Problems Problem Type Condition Code Onset Dates Condition Status Assessment Acute maxillary sinusitis J01.00 Active Assessment Unspecified acute conjunctivitis, left eye H10.32 Active Medications Medication Code System Code Instructions Start Date End Date Status Dosage Tobramycin [facility] [address]-05 0.3 % Ophthalmic every 4 hrs December 16, 2015 1 drop into affected eye Augmentin [facility] [address]-89 875-125 MG Orally Twice a day December 16, 2015 December 26, 2015 1 tablet Procedures Procedure Coding System Code Date OFFICE VISIT EST PATIENT LEVEL 4 CPT-4 63537 December 16, 2015 Vital Signs Date/Time: December 16, 2015 BMI 26.14 Index Weight 162 lbs Height 66 in Blood Pressure Diastolic 102 mm Hg Blood Pressure Systolic 160 mm Hg Cardiac Monitoring Heart Rate 103 /min Temperature 98.8 F Oximetry 98 % Results No Known Results Summary Purpose eClinicalWorks Submission
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
--- OUTSIDE RECORDS SUMMARY | 2016-11-29 14:58 | XMS REPORT | Referral Summary ---
Author Author [facility] Organization [facility] Address Unknown Phone Unavailable Care Team Providers Care It Data Architect Name Role Phone Glendy Monterroso Primary Care Physician [phone] Encounter Date(s): 12/29/14 - 12/29/14 [facility] [address] [address] [place] Discharge Diagnosis: Fibromyalgia Discharge Diagnosis: Anxiety Discharge [...] # 18 g, 1 Refill(s), Pharmacy : [facility] Start Date: 11/25/14 Status: Ordered ALPRAZolam 0.5 mg oral tablet 0.5 mg 1 tabs, Oral, QID, as needed for anxiety, # 120 tabs, 0 Refill(s) Start Date: 04/29/15 Status: Ordered Maxzide 75 mg-50 mg oral tablet 1 tabs, Oral, Daily, # 90 tabs, 3 Refill(s), Pharmacy: [facility] Start Date: 03/23/15 Status: Ordered omeprazole 20 mg oral delayed release tablet See Instructions, take 1 Tablet by Oral route 2 times every day, 0 Refill(s) Start Date: 05/05/14 Status: Ordered potassium chloride 20 mEq oral tablet, extended release 1 tabs, Oral, BID, START, # 180 tabs, 4 Refill(s), Pharmacy: [facility] [id number], 1 tabs Oral BID,Instr:START Start Date: 10/27/14 [...] continue taking 2 -3 times daily. Fibromyalgia [place] up to 4 times daily. Refills for [...]
--- OUTSIDE RECORDS SUMMARY | 2016-11-29 14:58 | XMS REPORT ---
Author Author Orestes Calero Organization [employer] Address Unknown Phone Unavailable Care Team Providers Care Captain/Check Airman Name Role Phone Orestes Calero CP Unavailable Allergies No Known Allergies Problems No Known Problems Medications No Known Medications Results No Known Results Summary Purpose eClinicalWorks Submission
--- NOTE | 2016-11-29 15:14 | NUR ---
XRAY RADIOLOGY AT BEDSIDE FOR PORTABLE CXR
[2016-11-29] MEDS ORDERED: NITROGLYCERIN 0.4 MG SUBLINGUAL TABLET SL PRN (15:15)
[2016-11-29] MEDS ORDERED: ASPIRIN 81 MG CHEWABLE TABLET PO ONE (15:15)
[2016-11-29 15:16] LABS: HCT - HEMATOCRIT 46.6 % (36-46); HGB - HEMOGLOBIN 15.5 GM/DL (12-16); MEAN CORPUSCULAR HGB 28.3 UUG (26-34); MEAN CORPUSCULAR HGB CONC(MCHC 33.3 GM/DL (31-37); MEAN CORPUSCULAR VOLUME 85.2 UM3 (80-100); MEAN PLATELET VOLUME 9.1 UM3 (9.4-12.4); RED BLOOD COUNT 5.47 M/MM3 (4.00-5.20); WBC - WHITE BLOOD COUNT 19.8 T/MM3 (4.5-11.0)
--- NOTE | 2016-11-29 15:17 | ERPDOC ---
Departure Disposition Decision Date: Nov 29, 2016 Disposition Decision Time: 17:15 Disposition: 01 DISCHARGED HOME, SELF-CARE Impression Impression Impression: Primary Impression: SIRS due to infectious process without acute organ dysfunction Additional Impressions: Leukocytosis Leukocytosis type: unspecified Qualified Codes: D72.829 - Elevated white blood cell count, unspecified Musculoskeletal chest pain Asthmatic bronchitis Asthma severity: unspecified severity Asthma complication type: with acute exacerbation Qualified Codes: J45.901 - Unspecified asthma with (acute) exacerbation Severity: Moderate Condition: Stable Seen By: Physician only Patient Instructions: Chest Wall Pain (ED), Noncardiac Chest Pain (ED) Problems/Meds/Labs Reviewed?: Yes Medications reviewed and manag: Yes Additional Instructions: Home to rest. Take antibiotics as ordered for infection. May use heating pad to chest as desired for comfort. Use inhaler every 4 hours as needed to help relieve chest tightness and to breathe easier. Take Medrol Dosepak to help decrease inflammation in your lungs so that you can breathe easier and to help the chest wall pain. [place] as needed for severe pain, Tylenol for mild to moderate pain. Push fluids. Follow up before the weekend with your PCP to make sure that you ae getting better and to recheck your white blood cell count which is quite elevated today. No evidence on today's labs that your chest pain is related to your heart. Follow up care ordered?: Yes Mental Status: Alert, Oriented Scripts Albuterol Sulfate (Proair HFA 90 mcg/actuation) 8.5 Gm Hfa.aer.ad 2 PUFF INH Q4H Y for WHEEZING, #1 INHALER 0 Refills Prov: JESSI CHEN MD 11/29/16 Hydrocodone/Acetaminophen ([place] 5-325 Tablet) 5-325 Tablet 1 TAB PO Q6H Y for PAIN, #20 TAB 0 Refills Prov: JESSI CHEN MD 11/29/16 Methylprednisolone (Methylprednisolone) 4 Mg Tablet 1 PACK PO DAILY, #1 PACK 0 Refills Take in tapering fashion as directed. Prov: JESSI CHEN MD 11/29/16 Azithromycin (Azithromycin) 250 Mg Tablet 1 TAB PO DAILY, #6 TAB 0 Refills TAKE TWO TABLETS ON DAY ONE, THEN ONE TABLET DAILY UNTIL ALL TAKEN. Prov: JESSI CHEN MD 11/29/16 HPI - Chest Pain General Chief Complaint: Chest Pain Stated Complaint: CHEST PAIN Time Seen by Provider: 15:08 Source: patient, RN notes reviewed, old records Exam Limitations: no limitations HPI - Chest Pain Initial Comments This patient comes in complaining of chest pain which she describes as a tightness that is in the area of her left breast and from there radiates down her arm and up to her shoulder. It started about 10 am today. She was seen in the [facility] for similar symptoms about a week ago and had a cardiac workup which was negative and was released after about 2 days. They told her that she had high blood pressure (it was 200 systolic) and put her on blood pressure medications. Today she suddenly feels weaker and is having generalized body aches and dizziness with abdominal cramping as well as the chest tightness. She does have some cough, no known fever. She called the [facility] facility and told them about the chest pain and was told to go to the nearest ER. Her PCP is in [place]. Occurred At: home Onset/Timing: Rapid Duration: 4-6 hrs Pain/Severity Scale: Now: 4/10 Activities at Onset/Context: none Location: anterior R, anterior L Quality: tightness Modifying Factors: WORSE WITH: palpation Associated Symptoms: shortness of breath, DENIES: abdominal pain, back pain, diaphoresis, fast HR, fever/chills, headache, heartburn, nausea/vomiting, rash, swelling/lump in chest, syncope Chest Pain Radiation: no radiation Nitro Today/Relief: 0.4 mg x 1, provided by ED, no relief Aspirin Treatment Today: 81 mg x 4, provided by ED Prior Chest Pain/Cardiac Isabel: non-cardiac Hx of Similar Symptoms: Yes Allergies: Coded Allergies: droperidol (Verified Allergy, Unknown, PARALYSIS, 11/29/16) Past History Past Medical History Metabolic: cancer (cervical), hypertension (recently started on meds for this) Cardiac: other (mitral valve prolapse) GI: GERD, other (GI bleed) Female: kidney stones Neurological: fibromyalgia, migraines Musculoskeletal: osteoarthritis Infectious: other (shingles) Surgical History Reproductive/: , hysterectomy Social History Smoking Status: Unknown if ever smoked Substance Use Type: does not use Alcohol Intake: none Record Review Pertinent history updated: Yes Review of Systems Constitutional Constitutional: dizziness, see HPI, weakness, DENIES: fever Eyes General: DENIES: pain Lids/Accessories: DENIES: erythema Vision: DENIES: blurring ENMT Ears: DENIES: pain Hearing: DENIES: hearing loss Balance: DENIES: vertigo Sinuses: DENIES: congestion, rhinorrhea Mouth/Throat: DENIES: sore throat Teeth: DENIES: pain Cardiovascular Cardiac: chest pain, dyspnea on exertion, see HPI Rhythm/Rate: DENIES: palpitations Vascular: DENIES: pedal edema, unilateral swelling Pulmonary Respiratory: cough, dyspnea, see HPI, DENIES: pneumonia hx GI Upper Abdomen: DENIES: heartburn/indigestion, nausea, vomiting Lower Abdomen: DENIES: blood in stool, constipation, diarrhea General: DENIES: dysuria, hematuria Female: DENIES: vaginal discharge Musculoskeletal General: DENIES: joint pain, pain Integumentary Skin: DENIES: itching, rash Neurological General: DENIES: headache, memory disturbances, seizures, syncope Psychiatric Psychiatric: DENIES: anxiety, depression Endocrine Endocrine: DENIES: heat/cold intolerance Hematologic/Lymphatic Hematologic/Lymphatic: DENIES: anemia, easy bruising Allergic/Immunological Allergic/Immunoligical: DENIES: hives All other Systems All Other Systems: Reviewed and Negative Physical Exam General General Nourishment: well nourished, well developed, appears stated age, no acute distress, adult General Body Habitus: well groomed Vitals and Pain First Documented Vital Signs Date Time Temp Pulse Resp B/P Pulse Ox O2 Delivery O2 Flow Rate FiO2 11/29/16 14:55 98.6 114 16 143/83 97 Room Air Weight: Kilograms: 81.900 Height (feet): 5 Height (inches): 6.00 Triage Pain Scale: RN VS reviewed by Provider: Yes Normal Exams: Head: Normocephalic w/o trauma Eyes: Pupils are PERRLA w/ EOMI, No scleral icterus, irritation, or foreign bodies noted ENMT: No facial trauma, nasal exudates, pharyngeal erythema, or exudates are noted Dental: No fractured, loose, or missing teeth noted Neck: Full range of motion, without adenopathy, JVD, bruits or thyromegaly Chest/Resp: Clear all lal, and symmetry bilaterally CV: Regular rate and rhythm, without murmur or gallop, Pulses 2+ all extremities, no pedal edema noted Abdomen: Bowel sounds positive, soft, non-tender, non-distended, no hepatosplenomegaly, masses or bruits noted Lymphatic: No lymphadenopathy, or lymphedema noted Musculoskeletal: No tenderness, or deformity noted, good range of motion, all extremities Integumentary: No rashes, hives, or bruising noted, hair and nails, without abnormality Neurologic: Patient is alert, and oriented, cranial nerves, motor/sensory/ cerebellar, exams w/o gross deficits, to observation Psychiatric: Patient exhibits, appropriate attention, emotion and affect Respiratory (brief) Respiratory: FOUND: tenderness Comments chest pain is reproducible with palpation, limited air flow but no wheezing Cardiovascular (brief) Cardiac: FOUND: click (mid systolic), regular rate, regular rhythm Differential Diagnoses Considering: Acute AR, Anxiety/Panic, Angina, Costochondritis, Esophageal Spasm , GERD, Pleurisy, Pneumonia, Other Progress Results/Orders Orders Procedure Category Date Status Time Cbc W/Auto LAB 11/29/16 Complete Diff-Reflex Manual 15:08 Bmp - Basic Metabolic LAB 11/29/16 Complete Panel 15:08 Probnp LAB 11/29/16 Complete 15:08 Troponin I W LAB 11/29/16 Complete Hemolysis Index 15:08 INR LAB 11/29/16 Complete 15:08 EKG EKG 11/29/16 Logged 15:08 Chest 1 View RAD 11/29/16 Resulted 15:08 Iv Lock (Ed Only) EDM 11/29/16 Transmitted 15:08 Aspirin (Asa) PHA 11/29/16 Complete 15:15 Nitroglycerin PHA 11/29/16 Complete (Nitrostat) 15:15 Normal Saline (Normal PHA 11/29/16 Complete Saline Iv) 15:30 Ketorolac (Toradol) PHA 11/29/16 Complete 15:30 Procalcitonin LAB 11/29/16 Complete Lactate - Lactic Acid LAB 11/29/16 Complete Blood Culture RICHARD 11/29/16 In Process Ua, Dip Wreflex LAB 11/29/16 Complete Microsc & Activity Director 16:08 Albuterol/Ipratropium PHA 11/29/16 Complete (Duoneb) 16:15 Influenza A/B Screen LAB 11/29/16 Complete 16:29 Hydromorphone PHA 11/29/16 Complete (Dilaudid) 16:45 Ondansetron Inj PHA 11/29/16 Complete (Zofran) 16:45 Ceftriaxone (Rocephin) PHA 11/30/16 Complete 09:00 Normal Saline (Normal PHA 11/29/16 Complete Saline Iv) 17:00 Methylprednisolone PHA 11/29/16 Complete Sod Succ (Solu-Medrol 18:00 Lab Results Laboratory Tests Test 11/29/16 15:11 11/29/16 16:06 11/29/16 16:11 11/29/16 16:34 White Blood Count 19.8T/MM3 Red Blood Count 5.47M/MM3 Hemoglobin 15.5GM/DL Hematocrit 46.6% Mean Corpuscular Volume 85.2UM3 Mean Corpuscular Hemoglobin 28.3UUG Mean Corpuscular Hemoglobin Concent 33.3GM/DL RDW Standard Deviation 42.1FL Platelet Count 448T/MM3 Mean Platelet Volume 9.1UM3 Immature Granulocyte % (Auto) % Neutrophils (%) (Auto) % Lymphocytes (%) (Auto) % Monocytes (%) (Auto) % Eosinophils (%) (Auto) % Basophils (%) (Auto) % Absolute Immature Granulocyte (auto T/MM3 Absolute Neutrophils (auto) T/MM3 Absolute Lymphocytes (auto) T/MM3 Absolute Monocytes (auto) T/MM3 Absolute Eosinophils (auto) T/MM3 Absolute Basophils (auto) T/MM3 Neutrophils % (Manual) 86.0% Band Neutrophils % 1.0% Lymphocytes % (Manual) 12.0% Basophils % (Manual) 1.0% Absolute Neutrophils (Manual) 17.0T/MM3 Band Neutrophils # 0.2T/MM3 Lymphocytes # (Manual) 2.4T/MM3 Basophils # (Manual) 0.2T/MM3 Red Cell Morphology Comment Normal Prothromb Time International Ratio 0.99 Turbidity < 20 Sodium Level 140MEQ/L Potassium Level 4.0MEQ/L Chloride Level 102MEQ/L Carbon Dioxide Level 24MEQ/L Anion Gap 14MEQ/L Blood Urea Nitrogen 19.0MG/DL Creatinine 0.8MG/DL Glomerular Filtration Rate Calc 79 BUN/Creatinine Ratio 24RATIO Glucose Level 124MG/DL Calculated Osmolality 272MOSM/KG Calcium Level 9.5MG/DL Icterus Index < 2 Troponin I < 0.012ng/ml PV-Lle-R-Type Natriuretic Peptide 80PG/ML Chemistry Specimen Hemolysis < 15 Procalcitonin < 0.05NG/ML Plasma Lactate 1.0MMOL/L Urine Collection Type Cleancatch-midstream Urine Color Yellow Urine Turbidity Cloudy Urine pH 5.5 Urine Specific [place] >=1.030 Urine Protein Trace Urine Glucose (UA) Negative Urine Ketones Negative Urine Blood Negative Urine Nitrite Negative Urine Bilirubin Negative Urine Urobilinogen 0.2EU/DL Urine Leukocyte Esterase Negative Urinalysis Comment Microscopic not ind. Influenza Type A Antigen Negative Influenza Type B Antigen Negative Medications Current ED Medications Aspirin (ASA) 324 mg O ONCE PO Last administered on 11/29/16 15:00; Start 11/29 at 15:15; Stop 11/29/16 at 15:16; Status DC Nitroglycerin 0.4 mg 0.4 mg Q5MIN PRN SL CHEST PAIN Last administered on 15:11; Start 11/29/16 at 15:15; Stop 11/29/16 at 18:24; Status DC Sodium Chloride (Normal Saline IV) 1,000 ml @ 0 mls/hr Q0M ONCE IV Last administered on 11/29/16 15:21; Start 11/29/16 at 15:30; Stop 11/29/16 at 15:31; Status DC Ketorolac Tromethamine (Toradol) 30 mg O ONCE IV Last administered on 15:27; Start 11/29/16 at 15:30; Stop 11/29/16 at 15:31; Status DC Albuterol/ Ipratropium (Duoneb) 3 ml O ONCE AEROSOL Last administered on 16:15; Start 11/29/16 at 16:15; Stop 11/29/16 at 16:16; Status DC Hydromorphone HCl (Dilaudid) 1 mg O ONCE IV Last administered on 11/29/16 16: 55; Start 11/29/16 at 16:45; Stop 11/29/16 at 16:46; Status DC Ondansetron HCl 4 mg 4 mg O ONCE IV Last administered on 11/29/16 16:53; Start 11/29/16 at 16:45; Stop 11/29/16 at 16:46; Status DC Ceftriaxone Sodium 1 g/Sodium Chloride 100 ml @ 200 mls/hr DAILY IV Last administered on 11/29/16 16:59; Start 11/30/16 at 09:00; Stop 11/30/16 at 09:00; Status DC Sodium Chloride (Normal Saline IV) 1,000 ml @ 0 mls/hr Q0M ONCE IV Last administered on 11/29/16 16:53; Start 11/29/16 at 17:00; Stop 11/29/16 at 17:01; Status DC Methylprednisolone Sodium Succinate (Solu-Medrol) 125 mg O ONCE IV Last administered on 11/29/16 17:55; Start 11/29/16 at 18:00; Stop 11/29/16 at 18:01; Status DC Progress Progress Tachycardia improved with IV fluids. With generalized aching and abdominal cramping it seems like this is more of a viral syndrome type picture. However, elevated WBC with more of a left shift, patient is given a dose of Rocephin in the ER to cover for possible early pneumonitis since urine is clear and the chest seems to be the most obvious source of infection. Patient asks if she could be admitted -- discussed with hospitalist who agrees that she does not meet admission criteria. Patient says that she does feel much better since she came with our interventions. EKG EKG : Rate: >100 (110) Rhythm: sinus (tachycardia) [place]: normal QRS: normal Intervals: normal ST/T: non-specific changes Other: other (LVH) Interpreted by: signing physician EKG Comments no prior EKG to compare Consult/PCP Consult/PCP : Type of discussion: Phone Consult/PCP Discussion Details [id number] - Dr Duron -- suggests that we send her home and have her follow up with her PCP. Does not feel that the patient meets admission criteria. JESSI CHEN MD Nov 29, 2016 15:17
[2016-11-29] MEDS ORDERED: LISI1TAB11 PO (15:21)
[2016-11-29] MEDS ORDERED: IBUP-1724 PO (15:21)
[2016-11-29] MEDS ORDERED: PHEN177L2 PO (15:21)
[2016-11-29] MEDS ORDERED: AMOX1TAB16 PO (15:21)
[2016-11-29 15:23] LABS: INR 0.99 (0.76-1.04); PROTHROMBIN TIME 10.8 SEC (9.31-12.49)
--- NOTE | 2016-11-29 15:23 | DI ---
Indication: ITS.REASON: chest pain left side PROCEDURE: CHEST 1 VIEW: Encounter: Initial Comparison: None FINDINGS: The lungs are clear. There is no abnormal airspace opacity, pleural effusion or pneumothorax identified. The heart size, pulmonary vasculature and mediastinum are within normal limits. No significant skeletal abnormality is seen. IMPRESSION: No acute cardiopulmonary abnormality. .
--- OUTSIDE RECORDS SUMMARY | 2016-11-29 15:23 | XMS REPORT ---
Author Author [employer], SYSTEM Organization Unknown Address Unknown Phone Unavailable Care Team Providers Care Paint And Table Edger Name Role Phone UNASSIGNED DOCTOR , DOCTOR PP [phone] Reason For Visit Chief Complaint ACUTE HEADACHE [...] MG/DL (65-99 MG/DL) *GFR EST NON AFR CUBAN 75 ML/MIN *GFR EST AFR AMER 87 [...]
--- OUTSIDE RECORDS SUMMARY | 2016-11-29 15:24 | XMS REPORT | Continuity of Care Document ---
Author Author [facility] Organization [facility] Address Unknown Phone Unavailable Allergies Medications Problems [...] AGNST STREPTOCOCCUS PNEUM INFL 11/24/2016 LEENA HUFF [id number] Nicotine dependence, cigarettes, uncomplicated 11/24/2016 LEENA HUFF I10 Essential (primary) hypertension 11/24/2016 LEENA HUFF R072 Precordial pain 11/24/2016 LEENA HUFF R0789 Other chest pain 11/24/2016 LEENA HUFF [id number] Other continuous churn buttermaker (current) drug therapy Procedures Code Description Performed [...] - 07/19/16 21:25 *GFR EST NON AFR FAROESE 75 mL/min NRG *GRFA EST AFR AMER [...] - 11/19/16 19:52 *GFR EST NON AFR FAROESE >90 mL/min NRG *GRFA EST AFR AMER [...] - 11/20/16 03:03 *GFR EST NON AFR FAROESE 66 mL/min NRG *GRFA EST AFR AMER 77 mL/min NRG TROPONIN-I - 11/20/16 03:03 TROPONIN-I <0.017 ng/mL 0.000-0.056 TROPONIN-I - 11/20/16 06:54 TROPONIN-I <0.017 ng/mL 0.000-0.056 Encounters ACCT No. Visit Date/Time Discharge Status Pt. Type Provider Facility Loc./Unit Complaint [id number] 05/21/2013 08:36:00 2012 14:16:00 DIS Inpatient Mariann MENDIOLA, [facility] [email or web address] [id number] 05/15/2013 09:21:00 2012 09:21:00 DIS Outpatient Mariann MENDIOLA, [facility] WIVANA [id number] 11/11/2012 22:13:00 2012 23:20:00 DIS Emergency Jayesh MENDIOLA, [facility]amEDKayley
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
[2016-11-29 15:25] LABS: ANION GAP 14 MEQ/L (5-15); BUN/CREATININE RATIO 24 RATIO (6-26); CALCIUM 9.5 MG/DL (8.4-10.2); CHLORIDE 102 MEQ/L (98-107); CO2 - CARBON DIOXIDE 24 MEQ/L (22-30); CREATININE 0.8 MG/DL (0.7-1.2); GLOMERULAR FILTRATION RATE 79; GLUCOSE 124 MG/DL (65-110); SODIUM 140 MEQ/L (134-144)
[2016-11-29] MEDS ORDERED: KETOROLAC 30mg/ml INJECTION IV ONE (15:30)
[2016-11-29] MEDS ORDERED: NORMAL SALINE 1,000 ML IV ONE ×2 (15:30→17:00)
[2016-11-29 15:32] LABS: BAND NEUTROPHILS # 0.2 T/MM3; BASOPHILS # (MANUAL) 0.2 T/MM3 (0-0.2); LYMPHOCYTES # (MANUAL) 2.4 T/MM3 (1-4.8); TOTAL CELLS COUNTED 100 %
[2016-11-29 15:34] LABS: PROBNP 80 PG/ML (0-175)
--- NOTE | 2016-11-29 16:05 | NUR ---
LAB LAB AT BEDSIDE FOR ADDITIONAL BLOOD DRAW
[2016-11-29] MEDS ORDERED: ALBUTEROL/IPRATROPIUM INHAL. 2.5mg-0.5mg/3ml Neb. AEROSOL ONE (16:15)
--- NOTE | 2016-11-29 16:15 | NUR ---
RT RT AT BEDSIDE FOR BREATHING TX
--- NOTE | 2016-11-29 16:27 | NUR ---
ACTIVITY PATIENT AMBULATORY TO RESTROOM, TOLERATES ACTIVITY WELL. SUPPLIES GIVEN FOR UA AND PROCEDURE EXPLAINED.
[2016-11-29 16:43] LABS: BLOOD, URINE NEGATIVE (NEGATIVE); COLOR,URINE YELLOW (YELLOW); LEUKOCYTE ESTERASE ,URINE NEGATIVE (NEGATIVE); NITRITE,URINE NEGATIVE (NEGATIVE); UROBILINOGEN,URINE 0.2 EU/DL (NORMAL)
[2016-11-29] MEDS ORDERED: ONDANSETRON 4mg/2ml INJECTION IV ONE (16:45)
[2016-11-29] MEDS ORDERED: HYDROMORPHONE 2mg/ml INJECTION IV ONE (16:45)
[2016-11-29 17:08] LABS: INFLUENZA A AG SCREEN NEGATIVE (NEGATIVE); INFLUENZA B AG SCREEN NEGATIVE (NEGATIVE)
[2016-11-29] MEDS ORDERED: AZIT250T6 PO (17:40)
[2016-11-29] MEDS ORDERED: HYDR-4246 PO (17:40)
[2016-11-29] MEDS ORDERED: METH4TAB16 PO (17:40)
[2016-11-29] MEDS ORDERED: ALBU8.5H INH (17:40)
[2016-11-29 18:17] VITALS: BP 143/74; PULSE 96; RESP 20; TEMP 98.6; O2SAT 99
[2016-11-30] MEDS ORDERED: CEFTRIAXONE 1 G in NORMAL SALINE 100 ML IV SCH (09:00)
== END 2016-11-29 18:17 | disposition home or self-care (01) ==
LOC: ED 14:52
DX: R65.10 Systemic inflammatory response syndrome (SIRS) of non-infectious origin without acute organ dysfunction (principal); D72.829 Elevated white blood cell count, unspecified; J45.901 Unspecified asthma with (acute) exacerbation; R07.89 Other chest pain
CPT/HCPCS: 36415; 71010; 80048; 81003; 83605; 83880; 84145; 84484; 85025; 85610; 87040; 87400; 93005; 94640; 96361; 96365; 96375; 99284; J0696; J1170; J1885; J2405; J2930; J7030; J7050

== ENCOUNTER 2016-12-25 16:04 | Emergency (ER) | payer MEDICAID ==
[~2016-12-25] VITALS: Ht 167.6 cm; Wt 84.4 kg
[~2016-12-25 16:04] MED LIST: ALBU8.5H INH; AMOX1TAB16 PO; AZIT250T6 PO; HYDR-4246 PO; IBUP-1724 PO; LISI1TAB11 PO; METH4TAB16 PO; PHEN177L2 PO
[2016-12-25 16:05] VITALS: Ht 167.6 cm; Wt 84.4 kg
--- OUTSIDE RECORDS SUMMARY | 2016-12-25 16:08 | XMS REPORT | Continuity of Care Document ---
Author Author [facility] Organization [facility] Address Unknown Phone Unavailable Support Name Relationship Address Phone Halina OBRIEN Caregiver [address] [address] Unavailable JESSI CHEN MD Caregiver [address] [place] [address] [place] [phone] Unavailable EARLINE KOHLER Next Of Kin [address] [place] [address] [phone] Insurance Providers Guarantor Halie Kohler Address [address] [place] [phone] Email DENIED 16 Payer [facility] Community Plan Policy Number [id number] Subscriber's Name Halie Kohler Relationship 18 Self Effective Date 16 Expiration Date 16 Chief Complaint and Reason for Visit Chief Complaint Chest Pain Reason for Visit Asthmatic bronchitis Leukocytosis Musculoskeletal chest pain [id number] Problems Past Problems Medical Problem Onset Date Asthmatic bronchitis Unknown Leukocytosis Unknown Musculoskeletal chest pain Unknown SIRS due to infectious process without acute organ dysfunction Unknown Medications Current Home Medications Medication Dose Units Route Directions Days Qty Instructions Start Date Albuterol Sulfate (Proair Hfa 90 Mcg/Actuation) 8.5 Gm Hfa.aer.ad 2 Puff Inhalation Every 4 Hours as needed for Wheezing 1 Inhaler 11/29/16 Amox Tr/Potassium Clavulanate (Amox Tr-K Clv 875-125 Mg Tab) 875 Mg Tablet 1 Tab Oral Twice A Day for Sinus Infection 11/29/16 Azithromycin 250 Mg Tablet 1 Tab Oral Daily 6 Tablet TAKE TWO TABLETS ON DAY ONE, THEN ONE TABLET DAILY UNTIL ALL TAKEN. 11/29/16 Hydrocodone/Acetaminophen ([place] 5-325 Tablet) 5-325 Tablet 1 Tab Oral Every 6 Hours as needed for Pain 20 Tablet 11/29/16 Ibuprofen 200 Mg Tablet 400 Mg Oral Every 4 Hours as needed for Pain 11/29/16 Lisinopril/Hydrochlorothiazide (Lisinopril-Hctz 20-12.5 Mg Tab) 1 Each Tablet 1 Tab Oral Twice A Day 11/29/16 Methylprednisolone 4 Mg Tablet 1 Pack Oral Daily 1 Pack Take in tapering fashion as directed. 11/29/16 Phenylephrine/Dm/Acetaminop/Gg (Mucinex Mdcv-Prh-Munqfbtgqj Lq) 177 Ml Liquid 10 Ml Oral As Needed 11/29/16 Social History Social History Problem Response Recorded Date/Time Onset Date Status Chewing Tobacco Status No 11/29/2016 3:24pm Not Applicable Not Applicable Hx Substance Use No 11/29/2016 3:24pm Not Applicable Not Applicable Hx Alcohol Use No 11/29/2016 3:24pm Not Applicable Not Applicable Query Response Start Date Stop Date Smoking Status Current every day smoker Hospital Discharge Instructions No hospital discharge instructions. Plan of Care Discharge Date 11/29/16 6:17pm Disposition 01 DISCHARGED HOME, SELF-CARE Condition at Discharge Stable Instructions/Education Provided Noncardiac Chest Pain (ED) Chest Wall Pain (ED) Prescriptions See Medication Section Referrals Halina OBRIEN Address: [address] [place] [id number] Additional Instructions/Education Home to rest. Take antibiotics as ordered for infection. May use heating pad to chest as desired for comfort. Use inhaler every 4 hours as needed to help relieve chest tightness and to breathe easier. Take Medrol Dosepak to help decrease inflammation in your lungs so that you can breathe easier and to help the chest wall pain. [place] as needed for severe pain, Tylenol for mild to moderate pain. Push fluids. Follow up before the weekend with your PCP to make sure that you ae getting better and to recheck your white blood cell count which is quite elevated today. No evidence on today's labs that your chest pain is related to your heart. Care Plan and Goals Physician Care Plan Problem:SIRS, leukocytosis, asthmatic bronchitis, musculoskeletal chest pain Goal: Follow up with primary care provider Instructions: Take medications and follow care plan as discussed/written Functional Status No functional status results. Allergies, Adverse Reactions, Alerts Allergen Type Severity Reaction Status Last Updated Droperidol Allergy Unknown PARALYSIS Active 11/29/16 Immunizations Query Response on File Recorded Date/Time Influenza Vaccine Hx OCTOBER 2016 11/29/16 3:24pm Vital Signs Acute Vital Signs Vital Response Date/Time Temperature (Fahrenheit) 98.6 deg F (96.8 - 99.1) 11/29/2016 6:17pm Temperature (Calculated Celsius) 37.56107 degrees C (36.0 - 37.3) 11/29/2016 6:17pm Pulse Rate (adult) 96 bpm (60 - 100) 11/29/2016 6:17pm Respiratory Rate 20 breaths/min (10 - 20) 11/29/2016 6:17pm O2 Sat by Pulse Oximetry 99 % (90 - 100) 11/29/2016 6:17pm Blood Pressure 143/74 mm Hg 11/29/2016 6:17pm Height (Feet) 5 feet 11/29/2016 2:55pm Height (Inches) 6.00 inches 11/29/2016 2:55pm Weight (Kilograms) 81.900 kg 11/29/2016 2:55pm Body Mass Index (BMI) 29.0 11/29/2016 2:55pm Results Laboratory Results Test Name Result Units Flags Reference Collection Date/Time Result Date/ Time Comments White Blood Count 19.8 T/MM3 H 4.5-11.0 11/29/2016 3:11pm 11/29/2016 3: 16pm Red Blood Count 5.47 M/MM3 H 4.00-5.20 11/29/2016 3:11pm 11/29/2016 3: 16pm Hemoglobin 15.5 GM/DL 12-16 11/29/2016 3:11pm 11/29/2016 3:16pm Hematocrit 46.6 % H 36-46 11/29/2016 3:11pm 11/29/2016 3:16pm Mean Corpuscular Volume 85.2 UM3 80-100 11/29/2016 3:11pm 11/29/2016 3: 16pm Mean Corpuscular Hemoglobin 28.3 UUG 26-34 11/29/2016 3:11pm 2016 3:16pm Mean Corpuscular Hemoglobin Concent 33.3 GM/DL 31-37 11/29/2016 3:11pm 11/29/2016 3:16pm RDW Standard Deviation 42.1 FL 36.9-50.2 11/29/2016 3:11pm 11/29/2016 3 :16pm Platelet Count 448 T/MM3 H 130-400 11/29/2016 3:11pm 11/29/2016 3:16pm Mean Platelet Volume 9.1 UM3 L 9.4-12.4 11/29/2016 3:11/29/2016 3: 16pm Neutrophils % (Manual) 86.0 % H 33-66 11/29/2016 3:11pm 11/29/2016 3: 33pm Band Neutrophils % 1.0 % 0-6 11/29/2016 3:1111/29/2016 3:33pm Lymphocytes % (Manual) 12.0 % L 23-45 11/29/2016 3:11pm 11/29/2016 3: 33pm Basophils % (Manual) 1.0 % 0-2 11/29/2016 3:1111/29/2016 3:33pm Band Neutrophils # 0.2 T/MM3 11/29/2016 3:11pm 11/29/2016 3:33pm Absolute Neutrophils (Manual) 17.0 T/MM3 H 1.8-7.7 11/29/2016 3:11pm 12/2016 3:33pm Lymphocytes # (Manual) 2.4 T/MM3 1-4.8 11/29/2016 3:pm 11/29/2016 3: 33pm Basophils # (Manual) 0.2 T/MM3 0-0.2 11/29/2016 3:11pm 11/29/2016 3: 33pm Red Cell Morphology Comment NORMAL 11/29/2016 3:11pm 11/29/2016 3: 33pm Prothromb Time International Ratio 0.99 0.76-1.04 11/29/2016 3:11pm 11/29/2016 3:23pm THERAPUTIC RANGE=2.00-3.00 FOR ANTI-THROMBOSIS THERAPUTIC RANGE=2.50-3.50 FOR IMPLANTED VALVE Icterus Index < 2 0-7 11/29/2016 3:11/29/2016 3:38pm Chemistry Specimen Hemolysis < 15 0-25 11/29/2016 3:11/29/2016 3 :38pm 0-25: Specimen Exhibited No Hemolysis. Turbidity < 20 0-20 11/29/2016 3:pm 11/29/2016 3:38pm Sodium Level 140 MEQ/L 134-144 11/29/2016 3:11pm 11/29/2016 3:25pm Potassium Level 4.0 MEQ/L 3.6-5 11/29/2016 3:11pm 11/29/2016 3:25pm Chloride Level 102 MEQ/L 98-107 11/29/2016 3:11pm 11/29/2016 3:25pm Carbon Dioxide Level 24 MEQ/L 22-30 11/29/2016 3:pm 11/29/2016 3: 25pm Anion Gap 14 MEQ/L 5-15 11/29/2016 3:11pm 11/29/2016 3:25pm Blood Urea Nitrogen 19.0 MG/DL H 7-17 11/29/2016 3:11pm 11/29/2016 3: 25pm Creatinine 0.8 MG/DL 0.7-1.2 11/29/2016 3:11pm 11/29/2016 3:25pm BUN/Creatinine Ratio 24 RATIO 6-26 11/29/2016 3:11pm 11/29/2016 3:25pm Glomerular Filtration Rate Calc 79 11/29/2016 3:11pm 11/29/2016 3: 25pm Glucose Level 124 MG/DL H 65-110 11/29/2016 3:11pm 11/29/2016 3:25pm Calculated Osmolality 272 MOSM/KG 261-280 11/29/2016 3:11/29/2016 3:25pm Calcium Level 9.5 MG/DL 8.4-10.2 11/29/2016 3:pm 11/29/2016 3:25pm Troponin I < 0.012 ng/ml 0-0.12 11/29/2016 3:pm 11/29/2016 3:38pm Troponin values with a difference of 55% increase from orginal troponin value represent a true biological DELTA value. (%increase Calc=Orginal Troponin value, divided by subsequent Troponin value, multiplied by 100) EA-Srj-K-Type Natriuretic Peptide 80 PG/ML 0-175 11/29/2016 3:11pm 12/2016 3:34pm Rule in cut points: <50 years old=450; 50-75 years old=900; >75 years old=1800; When utilizing ProBNP rule-in cut points, adjustment for impaired renal function is typically not required. Plasma Lactate 1.0 MMOL/L 0.6-2.2 11/29/2016 4:11pm 11/29/2016 4:26pm Procalcitonin < 0.05 NG/ML 11/29/2016 4:06pm 11/29/2016 4:43pm PCT < /=0.5 ng/mL - sepsis not likely; PCT >0.5 and </=2 ng/mL - sepsis possible; PCT >2 ng/mL - sepsis likely; PCT >/=10 ng/mL - systemic inflammatory response - sepsis or septic shock highly indicated. Influenza Type A Antigen NEGATIVE NEGATIVE 11/29/2016 4:34pm 2016 5:08pm Negative for Flu A protein antigen. Assay sensitivity is 90%. Influenza Type B Antigen NEGATIVE NEGATIVE 11/29/2016 4:34pm 2016 5:08pm Negative for Flu B protein antigen. Assay sensitivity is 90%. Urine Collection Type CLEANCATCH-MIDSTREAM 11/29/2016 4:34pm 2016 4:43pm Urine Color YELLOW YELLOW 11/29/2016 4:34pm 11/29/2016 4:43pm Urine Turbidity CLOUDY CLEAR 11/29/2016 4:34pm 11/29/2016 4:43pm Urine Specific [place] >=1.030 H 1.015-1.025 11/29/2016 4:34pm 2016 4:43pm Urine pH 5.5 5.0-8.0 11/29/2016 4:34pm 11/29/2016 4:43pm Urine Leukocyte Esterase NEGATIVE NEGATIVE 11/29/2016 4:34pm 2016 4:43pm Urine Nitrite NEGATIVE NEGATIVE 11/29/2016 4:34pm 11/29/2016 4:43pm Urine Protein TRACE A NEGATIVE 11/29/2016 4:34pm 11/29/2016 4:43pm Urine Glucose (UA) NEGATIVE NEGATIVE 11/29/2016 4:34pm 11/29/2016 4: 43pm Urine Ketones NEGATIVE NEGATIVE 11/29/2016 4:34pm 11/29/2016 4:43pm Urine Urobilinogen 0.2 EU/DL NORMAL 11/29/2016 4:34pm 11/29/2016 4: 43pm Urine Bilirubin NEGATIVE NEGATIVE 11/29/2016 4:34pm 11/29/2016 4: 43pm Urine Blood NEGATIVE NEGATIVE 11/29/2016 4:34pm 11/29/2016 4:43pm Urinalysis Comment MICROSCOPIC NOT IND. 11/29/2016 4:34pm 2016 4:43pm Microbiology Results Procedure Source Organism/Result Collection Date/Time Result Date/Time Result Status Blood Culture Peripheral/Iv Start CULTURE INITIATED - RESULTS PENDING 11/29 4:11pm 11/29/2016 4:16pm Preliminary Name: HALIE KOHLER Unit #: [id number] : 1975 Sex: F Admit Date: Loc / Svc: ED Discharge Date: DIAGNOSTIC IMAGING REPORT Report #: [id number] [facility] [place] Indication: ITS.REASON: chest pain left side PROCEDURE: CHEST 1 VIEW: Encounter: Initial Comparison: None FINDINGS: The lungs are clear. There is no abnormal airspace opacity, pleural effusion or pneumothorax identified. The heart size, pulmonary vasculature and mediastinum are within normal limits. No significant skeletal abnormality is seen. IMPRESSION: No acute cardiopulmonary abnormality. . Procedures No known history of procedures. Encounters Encounter Location Arrival/Admit Date Discharge/Depart Date Attending Provider Departed Emergency Room [facility] 11/29/16 2:52pm 11/29/16 6: 17pm JESSI CHEN MD Recent Diagnosis
--- OUTSIDE RECORDS SUMMARY | 2016-12-25 16:08 | XMS REPORT | Continuity of Care Document ---
Author Author [facility] Organization [facility] Address Unknown Phone Unavailable Allergies Medications Problems [...] AGNST STREPTOCOCCUS PNEUM INFL 11/24/2016 LEENA HUFF [id number] Nicotine dependence, cigarettes, uncomplicated 11/24/2016 LEENA HUFF I10 Essential (primary) hypertension 11/24/2016 LEENA HUFF R072 Precordial pain 11/24/2016 LEENA HUFF R0789 Other chest pain 11/24/2016 LEENA HUFF [id number] Other critical care unit manager (current) drug therapy Procedures Code Description Performed [...] - 07/19/16 21:25 *GFR EST NON AFR TURKMEN 75 mL/min NRG *GRFA EST AFR AMER [...] - 11/19/16 19:52 *GFR EST NON AFR TURKMEN >90 mL/min NRG *GRFA EST AFR AMER [...] - 11/20/16 03:03 *GFR EST NON AFR TURKMEN 66 mL/min NRG *GRFA EST AFR AMER 77 mL/min NRG TROPONIN-I - 11/20/16 03:03 TROPONIN-I <0.017 ng/mL 0.000-0.056 TROPONIN-I - 11/20/16 06:54 TROPONIN-I <0.017 ng/mL 0.000-0.056 Encounters ACCT No. Visit Date/Time Discharge Status Pt. Type Provider Facility Loc./Unit Complaint [id number] 05/21/2013 08:36:00 2012 14:16:00 DIS Inpatient Mariann MENDIOLA, [facility] [id number] 05/15/2013 09:21:00 2012 09:21:00 DIS Outpatient Mariann MENDIOLA, [facility] [place] [id number] 11/11/2012 22:13:00 2012 23:20:00 DIS Emergency Jayesh MENDIOLA, [facility]
--- OUTSIDE RECORDS SUMMARY | 2016-12-25 16:08 | XMS REPORT ---
Author Author [facility] Organization Unknown Address Unknown Phone Unavailable Care Team Providers Care Bed Worker Name Role Phone UNASSIGNED DOCTOR , DOCTOR PP [phone] Reason For Visit Chief Complaint ACUTE HEADACHE [...] MG/DL (65-99 MG/DL) *GFR EST NON AFR FINNISH 75 ML/MIN *GFR EST AFR AMER 87 [...]
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
--- NOTE | 2016-12-25 16:10 | NUR ---
ECG OBTAINED AT THIS TIME.
--- NOTE | 2016-12-25 16:12 | NUR ---
PHYSICIAN DR. TORRES AT BEDSIDE TO EXAMINE Pt.
[2016-12-25] MEDS ORDERED: NORMAL SALINE 1,000 ML IV ONE (16:15)
--- OUTSIDE RECORDS SUMMARY | 2016-12-25 16:29 | XMS REPORT ---
Author Author [employer] Organization Unknown Address Unknown Phone Unavailable Care Team Providers Care Crane Mechanic Name Role Phone UNASSIGNED DOCTOR , DOCTOR PP [phone] Reason For Visit Chief Complaint ACUTE HEADACHE [...] MG/DL (65-99 MG/DL) *GFR EST NON AFR NIUEAN 75 ML/MIN *GFR EST AFR AMER 87 [...]
--- OUTSIDE RECORDS SUMMARY | 2016-12-25 16:30 | XMS REPORT | Continuity of Care Document ---
Author Author [facility] Organization [facility] Address Unknown Phone Unavailable Allergies [...] AGNST STREPTOCOCCUS PNEUM INFL 11/24/2016 LEENA HUFF [id number] Nicotine dependence, cigarettes, uncomplicated 11/24/2016 LEENA HUFF I10 Essential (primary) hypertension 11/24/2016 LEENA HUFF R072 Precordial pain 11/24/2016 LEENA HUFF R0789 Other chest pain 11/24/2016 LEENA HUFF [id number] Other design printer balloon (current) drug therapy Procedures Code Description Performed [...] - 07/19/16 21:25 *GFR EST NON AFR ANGUILLAN 75 mL/min NRG *GRFA EST AFR AMER [...] - 11/19/16 19:52 *GFR EST NON AFR ANGUILLAN >90 mL/min NRG *GRFA EST AFR AMER [...] - 11/20/16 03:03 *GFR EST NON AFR ANGUILLAN 66 mL/min NRG *GRFA EST AFR AMER 77 mL/min NRG TROPONIN-I - 11/20/16 03:03 TROPONIN-I <0.017 ng/mL 0.000-0.056 TROPONIN-I - 11/20/16 06:54 TROPONIN-I <0.017 ng/mL 0.000-0.056 Encounters ACCT No. Visit Date/Time Discharge Status Pt. Type Provider Facility Loc./Unit Complaint [id number] 05/21/2013 08:36:00 2012 14:16:00 DIS Inpatient Mariann MENDIOLA, [facility] [id number] 05/15/2013 09:21:00 2012 09:21:00 DIS Outpatient Mariann MENDIOLA, [facility] WIV[place] [id number] 11/11/2012 22:13:00 2012 23:20:00 DIS Emergency Jayesh MENDIOLA, [facility]
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
[2016-12-25 16:49] LABS: BASOPHILS % (AUTO) 0.4 % (0-2); EOSINOPHILS # (AUTO) 0.5 T/MM3 (0-0.5); EOSINOPHILS % (AUTO) 4.9 % (0-4); HCT - HEMATOCRIT 39.8 % (36-46); HGB - HEMOGLOBIN 13.2 GM/DL (12-16); IMMATURE GRANULOCYTE # (AUTO) 0.03 T/MM3 (0.00-0.03); IMMATURE GRANULOCYTE % (AUTO) 0.3 % (0.0-0.5); LYMPHOCYTES # (AUTO) 2.4 T/MM3 (1-4.8); LYMPHOCYTES % (AUTO) 22.8 % (23-45); MEAN CORPUSCULAR HGB 29.1 UUG (26-34); MEAN CORPUSCULAR HGB CONC(MCHC 33.2 GM/DL (31-37); MEAN CORPUSCULAR VOLUME 87.7 UM3 (80-100); MEAN PLATELET VOLUME 9.3 UM3 (9.4-12.4); MONOCYTES # (AUTO) 0.5 T/MM3 (0-0.8); MONOCYTES % (AUTO) 4.3 % (0-9.0); NEUTROPHILS #(AUTO)-ABSOLUTE 7.1 T/MM3 (1.8-7.7); NEUTROPHILS % (AUTO) 67.3 % (33-66); RED BLOOD COUNT 4.54 M/MM3 (4.00-5.20); WBC - WHITE BLOOD COUNT 10.5 T/MM3 (4.5-11.0)
--- NOTE | 2016-12-25 16:49 | DI ---
Indication: ITS.REASON: Fatigue Procedure: CHEST 1 VIEW: Encounter: Initial Comparison: 11/29/2016 Technique: A single portable AP chest radiograph was obtained. Findings: Lungs and airways: Normal lung volumes. No focal airspace consolidation. Normal pulmonary vasculature. Pleura: No pleural effusion or pneumothorax. Heart and mediastinum: The cardiomediastinal silhouette and great vessels are within normal limits. Osseous structures and soft tissues: No acute osseous abnormality is seen. Impression: No acute cardiopulmonary process. .
--- NOTE | 2016-12-25 16:52 | ERPDOC ---
Departure Disposition Decision Date: December 25, 2016 Disposition Decision Time: 18:19 Disposition: 01 DISCHARGED HOME, SELF-CARE Impression Impression Impression: Primary Impression: Fatigue Fatigue type: chronic, unspecified Qualified Codes: R53.82 - Chronic fatigue , unspecified Additional Impression: Feared complaint without diagnosis Severity: Moderate Condition: Stable Seen By: Physician only Referrals: Halina OBRIEN (Family) 3 Days Patient Instructions: Fatigue (ED) Problems/Meds/Labs Reviewed?: Yes Medications reviewed and manag: Yes Additional Instructions: We have evaluated you for the common and life-threatening causes of fatigue. We did not find anything significant today. Follow up with your doctor to figure out what is causing your symptoms. Take the patanol to help with your eye symptoms. Follow up care ordered?: Yes Mental Status: Alert, Oriented Scripts Olopatadine HCl (Patanol) 50 Drop/5 Ml Drops 1 DROP BOTH EYES BID for 15 Days, ML Prov: DECEMBERGERA DO 12/25/16 HPI - General Medical General Chief Complaint: Cardiac Complaint Stated Complaint: WEAKNESS,PALPITATIONS Time Seen by Provider: 16:07 Source: patient Exam Limitations: no limitations HPI - General Medical Initial Comments 41yo woman presents to the ER tonight for weakness. Pt has felt like 'crud' for the last month; was seen in the ER 1 mo ago for identical sx. Pt has not been seen in f/u due to a move and changing physicians. Pt presented to [facility] today to try to obtain f/u, but was referred to ER by the physician for evaluation. C/o weakness, heart racing, and just not feeling well. Occurred At: home Onset: Rapid, Constant Duration: other Severity: moderate Modifying Factors: IMPROVES WITH: rest, WORSE WITH: movement Associated Symptoms: malaise, weakness, DENIES: chest pain, cough, diaphoresis , fever/chills, headaches, loss of appetite, nausea/vomiting, rash, seizure, shortness of breath, syncope Hx of Similar Symptoms: Yes Allergies: Coded Allergies: droperidol (Verified Allergy, Unknown, PARALYSIS, 12/25/16) Past History Past Medical History Metabolic: cancer, hypertension Cardiac: other GI: GERD, other Female: kidney stones Neurological: fibromyalgia, migraines Musculoskeletal: osteoarthritis Infectious: other Surgical History Reproductive/: , hysterectomy Social History Substance Use Type: does not use Alcohol Intake: none Review of Systems Constitutional Constitutional: fatigue GI Upper Abdomen: pain (left-sided) Physical Exam General General Nourishment: well nourished, well developed, appears stated age, no acute distress, adult, obese General Body Habitus: well groomed Vitals and Pain Weight: Kilograms: Height (feet): 5 Height (inches): 6.00 Triage Pain Scale: RN VS reviewed by Provider: Yes Normal Exams: Head: Normocephalic w/o trauma Eyes: Pupils are PERRLA w/ EOMI, No scleral icterus ENMT: No facial trauma, nasal exudates, pharyngeal erythema Neck: Full range of motion, without adenopathy, JVD Lymphatic: No lymphadenopathy Musculoskeletal: No tenderness, or deformity noted Integumentary: No rashes, hives, or bruising noted Neurologic: Patient is alert, and oriented Psychiatric: Patient exhibits, appropriate attention Eyes (brief) Eyes Brief: found: EOMI, PERRL, other (Sclera injected b/l.), not found: scleral icterus Respiratory (brief) Respiratory: FOUND: clear all lal, equal bilaterally, symmetrical, NOT FOUND : rales, wheezes Cardiovascular (brief) Cardiac: FOUND: murmur (Holosystolic), regular rate, regular rhythm, NOT FOUND : click, gallop, pedal edema, peripheral edema, rub Capillary Refill: <2 sec Pulses: all distal extremities, equal, strong Abdomen (brief) Abdominal Brief: FOUND: bowel normo active x4, soft, NOT FOUND: distended, hepatosplenomegaly, pulsatile mass, tender Differential Diagnoses Considering: Acute OH, Depression, DKA, Hypo/Hyperglycemia, Hypo/Hyperkalemia, Hypo/Hypernatremia, Metabolic, Pneumonia, Poisoning/Accidental OD, UTI Progress Results/Orders Orders Procedure Category Date Status Time Bmp - Basic Metabolic LAB 12/25/16 Complete Panel 16:15 Cbc W/Auto LAB 12/25/16 Complete Diff-Reflex Manual 16:15 Ethanol LAB 12/25/16 Complete 16:15 Tsh - Thyroid Stim LAB 12/25/16 Complete Hormone 16:15 D-Dimer LAB 12/25/16 Complete 16:15 Troponin I W LAB 12/25/16 Complete Hemolysis Index 16:15 Ua, Dip Wreflex LAB 12/25/16 Complete [employer] 16:15 Drug Screen LAB 12/25/16 Complete Urine-Test At [facility] [place] 16:15 Bgm (Ed) EDM 12/25/16 Transmitted 16:15 Chest 1 View RAD 12/25/16 Resulted 16:15 Normal Saline (Normal PHA 12/25/16 Complete Saline Iv) 16:15 Oxygen Administration EDM 12/25/16 Transmitted 16:15 Nothing By Mouth (Ed EDM 12/25/16 Transmitted Only) 16:15 Ekg Prn CODY 12/25/16 Complete 19:02 EKG EKG 12/25/16 Taken Lab Results Laboratory Tests Test 12/25/16 16:36 12/25/16 17:09 12/25/16 17:33 White Blood Count 10.5T/MM3 Red Blood Count 4.54M/MM3 Hemoglobin 13.2GM/DL Hematocrit 39.8% Mean Corpuscular Volume 87.7UM3 Mean Corpuscular Hemoglobin 29.1UUG Mean Corpuscular Hemoglobin Concent 33.2GM/DL RDW Standard Deviation 40.9FL Platelet Count 379T/MM3 Mean Platelet Volume 9.3UM3 Immature Granulocyte % (Auto) 0.3% Neutrophils (%) (Auto) 67.3% Lymphocytes (%) (Auto) 22.8% Monocytes (%) (Auto) 4.3% Eosinophils (%) (Auto) 4.9% Basophils (%) (Auto) 0.4% Absolute Immature Granulocyte (auto 0.03T/MM3 Absolute Neutrophils (auto) 7.1T/MM3 Absolute Lymphocytes (auto) 2.4T/MM3 Absolute Monocytes (auto) 0.5T/MM3 Absolute Eosinophils (auto) 0.5T/MM3 Absolute Basophils (auto) 0.0T/MM3 D-Dimer 182NG/ML Turbidity < 20 Sodium Level 143MEQ/L Potassium Level 3.5MEQ/L Chloride Level 103MEQ/L Carbon Dioxide Level 29MEQ/L Anion Gap 11MEQ/L Blood Urea Nitrogen 14.0MG/DL Creatinine 0.9MG/DL Glomerular Filtration Rate Calc 69 BUN/Creatinine Ratio 16RATIO Glucose Level 137MG/DL Calculated Osmolality 278MOSM/KG Calcium Level 9.2MG/DL Icterus Index < 2 Troponin I < 0.012ng/ml Thyroid Stimulating Hormone (TSH) 0.77MIU/L Chemistry Specimen Hemolysis < 15 Alcohol, Quantitative <10MG/DL Urine Collection Type Cleancatch-midstream Urine Color Yellow Urine Turbidity Clear Urine pH 6.0 Urine Specific [place] <=1.005 Urine Protein Negative Urine Glucose (UA) Negative Urine Ketones Negative Urine Blood Negative Urine Nitrite Negative Urine Bilirubin Negative Urine Urobilinogen 0.2EU/DL Urine Leukocyte Esterase Negative Urinalysis Comment Microscopic not ind. Urine Opiates Screen NegativeNG/ML Urine Oxycodone Screen NegativeNG/ML Urine Methadone Screen NegativeNG/ML Urine Propoxyphene Screen NegativeNG/ML Urine Barbiturates Screen NegativeNG/ML Urine Tricyclic Antidepressants NegativeNG/ML Urine Phencyclidine Screen NegativeNG/ML Urine Amphetamines Screen NegativeNG/ML Urine Methamphetamines Screen NegativeNG/ML Urine Benzodiazepines Screen NegativeNG/ML Urine Cocaine Screen NegativeNG/ML Urine Cannabinoids Screen NegativeNG/ML Lab Scanned Report REFERENCE [id number] Medications Current ED Medications Sodium Chloride (Normal Saline IV) 1,000 ml @ 0 mls/hr Q0M ONCE IV Last administered on 12/25/16t 16:34; Start 12/25/16 at 16:15; Stop 12/25/16 at 16:17; Status DC Progress Progress Pt with essentially normal PE, labs, and rads. Pt requesting something to help with grittiness in her eyes. Discussed dx, prognosis, tx, and need for f/u. Will rx patanol for likely allergic conjunctivitis. F/u with PCM. Pt voiced understanding. EKG EKG : Rate: 60-100 Rhythm: sinus [place]: normal QRS: normal Intervals: normal ST/T: non-specific changes Interpreted by: signing physician Xray Xray : Xray: CXR Portable Interpretation: Normal, Reviewed Written Report GERA TORRES DO December 25, 2016 16:52
[2016-12-25 17:00] LABS: ANION GAP 11 MEQ/L (5-15); BUN/CREATININE RATIO 16 RATIO (6-26); CALCIUM 9.2 MG/DL (8.4-10.2); CHLORIDE 103 MEQ/L (98-107); CO2 - CARBON DIOXIDE 29 MEQ/L (22-30); CREATININE 0.9 MG/DL (0.7-1.2); ETHANOL <10 MG/DL (<10); GLOMERULAR FILTRATION RATE 69; GLUCOSE 137 MG/DL (65-110); POTASSIUM 3.5 MEQ/L (3.6-5); SODIUM 143 MEQ/L (134-144)
[2016-12-25 17:21] LABS: BLOOD, URINE NEGATIVE (NEGATIVE); COLOR,URINE YELLOW (YELLOW); LEUKOCYTE ESTERASE ,URINE NEGATIVE (NEGATIVE); NITRITE,URINE NEGATIVE (NEGATIVE); UROBILINOGEN,URINE 0.2 EU/DL (NORMAL)
[2016-12-25 17:31] LABS: AMPHETAMINE SCREEN,URINE NEGATIVE; BARBITURATE SCREEN,URINE NEGATIVE; BENZODIAZEPINES SCREEN,URINE NEGATIVE; CANNABINOID SCREEN,URINE NEGATIVE; COCAINE SCREEN,URINE NEGATIVE; METHADONE SCREEN, URINE NEGATIVE; METHAMPHETAMINE SCREEN, URINE NEGATIVE; OPIATE SCREEN,URINE NEGATIVE; PHENCYCLIDINE SCREEN,URINE NEGATIVE; TRICYCLIC ANTIDEPRESSANT,URINE NEGATIVE
[2016-12-25 18:03] LABS: THYROID STIM HORMONE-TSH 0.77 MIU/L (0.47-4.68)
--- NOTE | 2016-12-25 18:13 | NUR ---
PHYSICIAN DR. TORRES AT BEDSIDE.
[2016-12-25] MEDS ORDERED: OLOP5DRO BOTH EYES (18:21)
[2016-12-25 18:30] VITALS: BP 116/65; PULSE 80; RESP 19; TEMP 98.4; O2SAT 98
--- NOTE | 2016-12-25 18:30 | NUR ---
DEPART Pt EDUCATION REGARDING FATIGUE REVIEWED WITH Pt, EDUCATED TO F/U WITH PCP, IV DC'd--CATHETER INTACT. Rx FOR PATANOL PROVIDED. Pt LEFT ED AMBULATORY AT THIS TIME.
== END 2016-12-25 18:30 | disposition home or self-care (01) ==
LOC: ED 16:04
DX: R53.1 Weakness (principal); R00.0 Tachycardia, unspecified; R53.81 Other malaise; R53.82 Chronic fatigue, unspecified; Z79.52 Long term (current) use of systemic steroids; Z79.899 Other long term (current) drug therapy
CPT/HCPCS: 71010; 80048; 80307; 81003; 84443; 84484; 85025; 85379; 93005; 99284; J7030; 80306